=== PATIENT | female | born 1970 | race Caucasian/White ===

== ENCOUNTER 2023-02-03 09:26 | Outpatient (AMB) | payer OTHER, SELFPAY ==
--- NOTE | 2023-02-03 09:27 | A.OFFVIS_ITS ---
Intake Vital Signs 3 02/03/23 09:34 Height 5 ft 7 in Weight 146 lb 2 oz BMI 22.9 BP 120/70 Blood Pressure Location Rt brachial Position Sitting Pulse 66 Pulse Source Pulse Oximeter Pulse Oximetry (%) 99 Intake Visit Reasons: Arthralgia and Sacroiliitis Intake Note: Pain today 12/06 Qm Nurse Required: No Accompanied by: Self / Same As Patient Allergies erythromycin base Allergy (Unknown, Verified 02/03/23 09:33) Unknown HPI Arthralgia and Sacroiliitis 2 HPI0 Details Patient is a pleasant 52 years old female presents today for initial evaluation of chronic low back pain. Denies any past surgeries send trauma, injury, or falls. Patient reports chronic low back pain since 18/05 due to no specific or inciting events. Patient reports onset of pain has been gradual and over the past year has been progressively getting worse and negatively affecting her daily activities, functioning, mood, sleep, and social interactions. Back pain is axial and also radiates to both sides of the back and into both buttocks and lateral hips bilaterally which is consistent with sacroiliac joint pain. She denies any radiation to her lower extremities. Patient has completed numerous courses of physical therapy, chiropractic manipulation, muscle therapy and back injections at [facility] with minimal or no pain relief. One of her last injections were bilateral L3-L4 L5 lumbar medial branch blocks by Dr. Lambert on 10/05/2021 which provided no pain relief. Patient also try to manage her pain is meloxicam, Flexeril, diclofenac and CBD without significant relief. A course of prednisone therapy helped for 2 days only. She also underwent rheumatology evaluation with negative workup including HLA B27 which was negative. Denies any fever, chills, abdominal or groin pain, weakness, numbness, tingling, bladder or bowel dysfunction, or saddle anesthesia. Location Lower back wraps around both buttocks and into lateral hips bilaterally Duration Chronic low back pain since 2011 Characteristics of symptom or complaint Aching, tiring, spreading, radiating, piercing Aggravating or associated factors Any movements, daily activities, changing positions, prolonged sitting Relieving factors Minimal effects with NSAIDs, Flexeril, Tylenol, heat therapy Treatment PT, chiropractor, acupunture, muscle therapy. Back injections- [facility] Medical History (Updated 02/06/23 @ 16:27 by RENETTA Brown) Sacroiliitis Bilateral low back pain without sciatica DDD (degenerative disc disease), lumbar Arthralgia Social History Alcohol intake: current Alcohol intake frequency: a few times a week Alcohol type: wine Review of Systems Const All systems reviewed & are unremarkable except as noted in HPI and below Physical Exam Vital Signs: Last Vital Signs Pulse 66 02/03/23 09:34 BP 120/70 02/03/23 09:34 Pulse Ox 99 02/03/23 09:34 BMI result Body Mass Index 22.9 General: Appears afebrile. Alert and oriented. Mood and affect appropriate. Follows and participates in conversation appropriately. Respiratory effort is unlabored. No cough. Able to transition from sit to stand unassisted. Ambulates with bilaterally normal heel strike and toe off. General: Yes no CVA tenderness Back/Spine/Pelvis Other: Patient is able to walk and stand on heels and tip toes with no difficulties demonstrating good motor tone. No limping. Can flex forward to 65-75 degrees and extend to 5-10 degrees before experiencing lumbar pain, worse pain with lumbar extension. Demonstrates 5/5 strength of quadriceps bilaterally as well as flexion/dorsiflexion of bilateral feet against resistance. 2+ pedal pulses bilaterally. Seated straight leg rise with dorsiflexion negative bilaterally. +2 patellar and achilles reflexes bilaterally. Facet loading test positive bilaterally. Miguel sign, Kenji?s, [place], Pelvic compression and Stinchfield tests are positive bilaterally. No groin pain with I/E hip rotations. No clonus. Valsalva maneuver negative. Back: no CVA tenderness Cervical Spine: cervical ROM normal and No Cervical spine tenderness Thoracic/Lumbar Spine: thoracic and lumbar spine normal to inspection, No Thoracic/lumbar spine scar(s), Lasegue's sign negative, straight leg raise negative bilaterally, pain with thoraco-lumbar ROM, paraspinal muscle tenderness, No thoracic spinal tenderness and lumbar spinal tenderness at L4 Pelvis: buttock tenderness bilaterally Sacroiliac joints: bilaterally tender to palpation Results Reviewed Results Reviewed: Assessment & Plan Assessment & Plan (1) DDD (degenerative disc disease), lumbar: Code(s): M51.36 - Other intervertebral disc degeneration, lumbar region (2) Sacroiliitis: Code(s): M46.1 - Sacroiliitis, not elsewhere classified (3) Lumbosacral spondylosis: Code(s): M47.817 - Spondylosis without myelopathy or radiculopathy, lumbosacral region (4) Sacroiliac joint pain: Code(s): M53.3 - Sacrococcygeal disorders, not elsewhere classified Plan Patient's pain is consistent with sacroiliac joint, axial and discogenic pain components. Will obtain plain films of lumbar spine and SIJ areas to assess degree of degenerative changes, any subluxation, listhesis or pars defects. Lumbar spine MRI of 06/2022 is noted above and reviewed with patient. Tenantively plan for Bilateral Diagnostic Sacroiliac Joint Injection with local and fluoroscopy. We will also obtain medical records from [facility] to review previous interventional treatments. Discussed therapeutic injections, neuromodulation with PNS trial and RFA procedures, SIJ fusion as potential treatments if positive response to nerve blocks. Expectations, risks and benefits were reviewed. Patient is aware he will be contacted to schedule this procedure. All questions were answered and the patient is in agreement of plan. Follow-up after injections and sooner as needed. Orders: Orders 2 XR sacroiliac joint min 3V 02/03/23 M46.1 - Sacroiliitis, not elsewhere classified, M47.817 - Spondylosis without myelopathy or radiculopathy, lumbosacral region, M51.36 - Other intervertebral disc degeneration, lumbar region XR lumbar spine 4V min 02/03/23 M46.1 - Sacroiliitis, not elsewhere classified, M47.817 - Spondylosis without myelopathy or radiculopathy, lumbosacral region, M51.36 - Other intervertebral disc degeneration, lumbar region Coding Level of Care Code New Pt Level 4 (52718) Diagnoses DDD (degenerative disc disease), lumbar M51.36 Sacroiliitis M46.1 Lumbosacral spondylosis M47.817 Sacroiliac joint pain M53.3
[2023-02-03 09:34] VITALS: BP 120/70; PULSE 66; O2SAT 99; BMI 22.9
== END 2023-02-03 10:18 | disposition home or self-care (01) ==
PROVIDERS: PCP Family Medicine; Visit Provider Nurse Practitioner Family
DX: M51.36 Other intervertebral disc degeneration, lumbar region (principal); M46.1 Sacroiliitis, not elsewhere classified; M47.817 Spondylosis without myelopathy or radiculopathy, lumbosacral region; M53.3 Sacrococcygeal disorders, not elsewhere classified
CPT/HCPCS: 99204

== ENCOUNTER → 2023-02-03 09:26 | Outpatient (BNVA) | payer OTHER, SELFPAY | PROVIDERS: PCP Family Medicine; Visit Provider Nurse Practitioner Family ==

== ENCOUNTER 2023-03-08 06:10 | Outpatient (REF) | payer OTHER, SELFPAY ==
--- NOTE | ~2023-03-08 | FL_ITS ---
EXAMINATION: XR FLUOROSCOPY WITH IMAGES CLINICAL INFORMATION: Sacrococcygeal disorders, not elsewhere classified. COMPARISON: None available. TECHNIQUE: Fluoroscopy Supervised By: Dr. Jai Chahal. Fluoroscopy Time: 0.1 minute. Cumulative Dose: 2.69 mGy. DAP: 0.0468 Gycm2. Images: 2. FINDINGS: Images demonstrate needle placement and contrast injection of the bilateral sacroiliac joints FL/FL guidance in treatment room IMPRESSION: Fluoroscopy guidance for pain management procedure
== END 2023-03-08 06:11 | disposition home or self-care (01) ==
LOC: CF 06:10
PROVIDERS: Visit Provider Anesthesiology
DX: M53.3 Sacrococcygeal disorders, not elsewhere classified (principal); M51.36 Other intervertebral disc degeneration, lumbar region; M46.1 Sacroiliitis, not elsewhere classified; M47.817 Spondylosis without myelopathy or radiculopathy, lumbosacral region
CPT/HCPCS: 27096

== ENCOUNTER 2023-03-08 14:23 | Outpatient (AMB) | payer OTHER, SELFPAY ==
--- NOTE | 2023-03-08 14:20 | MHC.OFFVIS ---
Intake Vital Signs 03/08/23 14:35 03/08/23 14:36 Height 5 ft 7 in 5 ft 7 in Weight 146 lb 146 lb BMI 22.9 22.9 BP 124/72 112/60 Blood Pressure Location Lt brachial Lt brachial Position Sitting Sitting Respiration 16 16 Pulse 68 66 Pulse Source Pulse Oximeter Pulse Oximeter Pulse Oximetry (%) 98 98 Oxygen Delivery Method Room Air Room Air Comment pre-op post-op Intake Visit Reasons: BILAT DX SIJ INJ/*ATIVAN PRE* Allergies erythromycin base Allergy (Unknown, Verified 03/08/23 15:19) Unknown [facility] Medical History (Updated 02/06/23 @ 16:27 by RENETTA Brown) Sacroiliitis Bilateral low back pain without sciatica DDD (degenerative disc disease), lumbar Arthralgia Social History Alcohol intake: current Alcohol intake frequency: a few times a week Alcohol type: wine Physical Exam Vital Signs: Last Vital Signs Pulse 66 03/08/23 14:36 Resp 16 03/08/23 14:36 BP 112/60 03/08/23 14:36 Pulse Ox 98 03/08/23 14:36 Oxygen Delivery Method Room Air 03/08/23 14:36 BMI result Body Mass Index 22.9 Assessment & Plan Assessment & Plan (1) DDD (degenerative disc disease), lumbar: Code(s): M51.36 - Other intervertebral disc degeneration, lumbar region (2) Sacroiliitis: Code(s): M46.1 - Sacroiliitis, not elsewhere classified (3) Lumbosacral spondylosis: Code(s): M47.817 - Spondylosis without myelopathy or radiculopathy, lumbosacral region (4) Sacroiliac joint pain: Code(s): M53.3 - Sacrococcygeal disorders, not elsewhere classified Plan: bilateral diagnostic sacroiliac joint injection Informed consent was explained thoroughly to the patient. All questions about benefits and risks for the procedure were answered. Patient came to the operating room and was positioned prone on the operating table with the pillow under the pelvis. Time out was performed delineating name and of the patient, allergies and the nature of the procedure. The lower back and buttocks of the patient were prepped with ChloraPrep prepped and draped with sterile utility towels. C-arm was brought over the operating field and sq picture of patient's pelvis was demonstrated on the screen. For the right joint tilting C-arm contralateral to the site of the joint the most posterior portion of the joints was superimposed with anterior silhouette of the joint. Skin was injected in the projection of the joint slightly medial to the location of the joint with 25 gauge 1/2 inch needle using local lidocaine 2% .After that 22 gauge 3 and 1/2 inch needle was driven to the right joint in tunnel vision fashion. When needle entered the joint capsule injection of the contrast was performed demonstrating intra-articular and minimally periarticular spread of the contrast. After that 4 cc. of ropivacaine 0.5% was injected into the joint. Upon completion of the injections the needle was removed Sterile dressing was applied. The procedure was repeated on the left side in a mirroring fashion. Upon completion of the injection patient was taken outside of the operating room to the recovery room where recovered uneventfully. Plan Patient's pain is consistent with sacroiliac joint, axial and discogenic pain components. Will obtain plain films of lumbar spine and SIJ areas to assess degree of degenerative changes, any subluxation, listhesis or pars defects. Lumbar spine MRI of 06/2022 is noted above and reviewed with patient. Tenantively plan for Bilateral Diagnostic Sacroiliac Joint Injection with local and fluoroscopy. We will also obtain medical records from [facility] to review previous interventional treatments. Discussed therapeutic injections, neuromodulation with PNS trial and RFA procedures, SIJ fusion as potential treatments if positive response to nerve blocks. Expectations, risks and benefits were reviewed. Patient is aware he will be contacted to schedule this procedure. All questions were answered and the patient is in agreement of plan. Follow-up after injections and sooner as needed. Orders: Orders FL guidance in treatment room Today M53.3 - Sacrococcygeal disorders, not elsewhere classified Coding Level of Care Code Procedure Only Diagnoses DDD (degenerative disc disease), lumbar M51.36 Sacroiliitis M46.1 Lumbosacral spondylosis M47.817 Sacroiliac joint pain M53.3
[2023-03-08 14:35] VITALS: BP 124/72; PULSE 68; RESP 16; O2SAT 98; BMI 22.9
[2023-03-08 14:36] VITALS: BP 112/60; PULSE 66; RESP 16; O2SAT 98; BMI 22.9
== END 2023-03-08 15:10 | disposition home or self-care (01) ==
LOC: HO.PMCPRC 14:23
PROVIDERS: PCP Family Medicine; Visit Provider Anesthesiology
DX: M46.1 Sacroiliitis, not elsewhere classified (principal); M53.3 Sacrococcygeal disorders, not elsewhere classified
CPT/HCPCS: 27096

== ENCOUNTER 2023-03-10 13:06 | Outpatient (AMB) | payer OTHER, SELFPAY ==
--- NOTE | 2023-03-10 13:08 | MHC.OFFVIS ---
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 Chahal. Patient reports no pain relief with recent injections and reports aggravation of lower back pain, especially with flexion and extension of her lower lumbar spine. Patient reports her pain and symptoms are unchanged following the procedure. She reports she did not even gain a transient improvement of her pain symptoms following the injections. She continues to endorse pain across her lower lumbar and sacral regions with radiating pain into her buttocks but not lower limbs. Patient requests Neurosurgical evaluation prior to consideration to Bilateral L5-S1 TFESI injection. Pain consistent with discogenic and radicular symptoms. Walking, prolonged standing, climbing stairs, ADLs aggravate her pain on daily basis. She is not able to gain adequate and refreshed sleep at night due to pain. Sneezing and coughing do not reproduce pain. Denies any recent cough, cold, infection, fever or other significant changes in medical history since last office visit. Patient denies any bladder or bowel incontinence or saddle anesthesia. Past Procedures: 03/08/23: Bilateral Diagnostic Sacroiliac Joint Injections-0% pain relief [facility] Procedures: 06/22/2011: B/L L5-S1 Lumbar facet injection Dr. Moore 08/04/2011: L5-S1 Interlaminar MICHAEL Dr[address] Moore 10/05/2021: Bilateral L3-L4-L5 MBB-0% pain relief Dr. Lambert PRIOR: Patient is a pleasant 52 years old female presents today for initial evaluation of chronic low back pain. Denies any past surgeries send trauma, injury, or falls. Patient reports chronic low back pain since 18/05 due to no specific or inciting events. Patient reports onset of pain has been gradual and over the past year has been progressively getting worse and negatively affecting her daily activities, functioning, mood, sleep, and social interactions. Back pain is axial and also radiates to both sides of the back and into both buttocks and lateral hips bilaterally which is consistent with sacroiliac joint pain. She denies any radiation to her lower extremities. Patient has completed numerous courses of physical therapy, chiropractic manipulation, muscle therapy and back injections at [facility] with minimal or no pain relief. One of her last injections were bilateral L3-L4 L5 lumbar medial branch blocks by Dr. Lambert on 10/05/2021 which provided no pain relief. Patient also try to manage her pain is meloxicam, Flexeril, diclofenac and CBD without significant relief. A course of prednisone therapy helped for 2 days only. She also underwent rheumatology evaluation with negative workup including HLA B27 which was negative. Denies any fever, chills, abdominal or groin pain, weakness, numbness, tingling, bladder or bowel dysfunction, or saddle anesthesia. Location Lower back wraps around both buttocks and into lateral hips bilaterally Duration Chronic low back pain since 2011 Characteristics of symptom or complaint Aching, tiring, spreading, radiating, piercing Aggravating or associated factors Any movements, daily activities, changing positions, prolonged sitting Relieving factors Minimal effects with NSAIDs, Flexeril, Tylenol, heat therapy Treatment PT, chiropractor, acupunture, muscle therapy. Back injections- [facility] Medical History Sacroiliitis Bilateral low back pain without sciatica DDD (degenerative disc disease), lumbar Arthralgia Social History Alcohol intake: current Alcohol intake frequency: a few times a week Alcohol type: wine Review of Systems Const All systems reviewed & are unremarkable except as noted in HPI and below Physical Exam Vital Signs: Last Vital Signs Pulse 73 03/10/23 13:13 BP 122/71 03/10/23 13:13 Pulse Ox 99 03/10/23 13:13 Oxygen Delivery Method Room Air 03/10/23 13:13 BMI result Body Mass Index 23.5 General: Appears afebrile. Alert and oriented. Mood and affect appropriate. Follows and participates in conversation appropriately. Respiratory effort is unlabored. No cough. Able to transition from sit to stand unassisted. Ambulates with bilaterally normal heel strike and toe off. General: Yes no CVA tenderness Back/Spine/Pelvis Other: Limited lumbar ROM, flexion and extension equally reproduce significant pain. Demonstrates 5/5 strength of quadriceps bilaterally as well as flexion/dorsiflexion of bilateral feet against resistance. 2+ pedal pulses bilaterally. Seated straight leg rise with dorsiflexion negative bilaterally. +2 patellar and achilles reflexes bilaterally. Facet loading test positive bilaterally. Kenji?s, Pelvic compression and Stinchfield tests are positive bilaterally. No groin pain with I/E hip rotations. Valsalva maneuver negative. Back: no CVA tenderness Cervical Spine: cervical ROM normal and No Cervical spine tenderness Thoracic/Lumbar Spine: thoracic and lumbar spine normal to inspection, No Thoracic/lumbar spine scar(s), Lasegue's sign negative, straight leg raise negative bilaterally, pain with thoraco-lumbar ROM, paraspinal muscle tenderness, No thoracic spinal tenderness and lumbar spinal tenderness at L4 Pelvis: buttock tenderness bilaterally Sacroiliac joints: bilaterally tender to palpation Results Reviewed Results Reviewed: XR SACRO ILIAC JOINTS >3 views 02/07/23 INDICATION: Other intervertebral disc degeneration. Sacroiliitis, not elsewhere classified. Spondylosis without myelopathy or radiculopath, lumbosacral region. COMPARISON: XR lumbar spine 02/07/2023. FINDINGS: The visualized SI joint space is bilaterally symmetrical. There is no evidence of lytic or sclerotic process. Bones demonstrate normal mineralization. IUD IMPRESSION: Unremarkable radiographic appearance of the sacroiliac joints. XR SPINE LUMBAR MIN 4 VIEWS 02/07/23 INDICATION: Other intervertebral disc degeneration. Sacroiliitis, not elsewhere classified. Spondylosis of the lumbosacral region. COMPARISON: None Available. FINDINGS: The alignment is anatomic. Vertebral body height is normal without compression deformity. There is no evidence of spondylolysis. Degenerative disc disease with moderate to advanced disc space narrowing at L5-S1. Flexion and extension are normal. IUD noted. IMPRESSION: No radiographic evidence of acute fracture or traumatic subluxation. Degenerative disc disease with moderate to advanced disc space narrowing at L5-S1. Assessment & Plan Assessment & Plan (1) Lumbosacral spondylosis: Code(s): M47.817 - Spondylosis without myelopathy or radiculopathy, lumbosacral region (2) DDD (degenerative disc disease), lumbar: Code(s): M51.36 - Other intervertebral disc degeneration, lumbar region (3) Sacroiliac joint pain: Code(s): M53.3 - Sacrococcygeal disorders, not elsewhere classified Plan Patient has had multiple back injections at [facility] without relief. Recent bilateral diagnostic sacroiliac joint injections gave her 0% pain relief. Patient request Neurosurgery referral prior to proceeding treating lumbar DDD at L5-S1 level. Will update lumbar spine MRI per [facility]. Scripts provided for muscle relaxant, short script tramadol and NSAID for acute on chronic back symptoms. All questions and concerns have been answered and patient agreed with the plan. Follow up after Neurosurgery evaluation and sooner if needed. Orders: Orders MR lumbar spine wo con Today M47.817 - Spondylosis without myelopathy or radiculopathy, lumbosacral region, M51.36 - Other intervertebral disc degeneration, lumbar region Referrals Neurosurgery Referral M51.36 - Other intervertebral disc degeneration, lumbar region Medications: New celecoxib 200 mg PO BID PRN 60 caps 0RF pain M47.817 - Spondylosis without myelopathy or radiculopathy, lumbosacral region, M51.36 - Other intervertebral disc degeneration, lumbar region, M53.3 - Sacrococcygeal disorders, not elsewhere classified methocarbamol 750 mg PO BID PRN 60 tabs 1RF muscle spasm 30 days M47.817 - Spondylosis without myelopathy or radiculopathy, lumbosacral region, M51.36 - Other intervertebral disc degeneration, lumbar region, M53.3 - Sacrococcygeal disorders, not elsewhere classified tramadol 50 mg PO BID PRN 10 tabs 0RF pain 5 days M47.817 - Spondylosis without myelopathy or radiculopathy, lumbosacral region, M51.36 - Other intervertebral disc degeneration, lumbar region Coding Level of Care Code Est Pt Level 4 (04958) Diagnoses Lumbosacral spondylosis M47.817 DDD (degenerative disc disease), lumbar M51.36 Sacroiliac joint pain M53.3
[2023-03-10 13:13] VITALS: BP 122/71; PULSE 73; O2SAT 99; BMI 23.5
== END 2023-03-10 13:45 | disposition home or self-care (01) ==
PROVIDERS: PCP Family Medicine; Visit Provider Nurse Practitioner Family
DX: M47.817 Spondylosis without myelopathy or radiculopathy, lumbosacral region (principal); M51.36 Other intervertebral disc degeneration, lumbar region; M53.3 Sacrococcygeal disorders, not elsewhere classified
CPT/HCPCS: 99214

== ENCOUNTER → 2023-03-10 13:06 | Outpatient (BNVA) | payer OTHER, SELFPAY | PROVIDERS: PCP Family Medicine; Visit Provider Nurse Practitioner Family ==

== ENCOUNTER 2023-04-27 09:27 | Outpatient (AMB) | payer OTHER, SELFPAY ==
--- NOTE | 2023-04-27 09:46 | HO.SPINEOV ---
Intake Intake Visit Reasons: Low back pain Intake Note: Ms. Rick is here today c/o low back pain. MRI done @ [facility]/brought disc. 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 HPI: This 52-year-old otherwise healthy female is suffering from progressive severe low back pain that started several years ago without a cause. The pain is located in the lumbosacral spine and radiates from hip to hip down to her buttocks and tailbone. Since three months she noticed that her outer 3 toes are numb. The pain is constant 24/7. Her sleep is interrupted and simple cycle analyst are painful. Tramadol takes the edge off. She denies weakness, bowel or urinary problems The following conservative treatment options were tried without success antiinflammatories, tylenol, physician guided home exercise plan, physical therapy, chiropractic therapy, muscle therapy and several cortisone shots. PMH: None Medications: Currently none as the [id number]-lvp-rcoofut medication provided no relief Allergies: Erythromycin Social history: , 2 children, employed, nonsmoker Physical Exam: Pleasant female. Changing position is painful.Camargo sign is positive on the left. There is mild pain on palpation. Flexion and extension are restricted to 20 degrees and very painful. Axial loading is positive. Straight leg raise is negative. There is hypoesthesia of digiti 1-3 on the left foot. Radiological Studies: MRI of the lumbar spine done at [facility] in June 2022 show a an normal anatomy of the lumbar spine with the exception of the L5-S1 segment where there is severe lumbar degenerative disc disease with Modic changes and an eccentric disc bulge touching the left S1 nerve root. Impression/Plan: This 52-year-old female suffering from intractable progressive low back pain. The severe degenerative disc disease L5-S1 his most likely the source of her pain and the eccentric disc bulge explains the left sciatica and numbness of the outer 3 toes (S1 radiculopathy). We had an extensive discussion about the origin of her back pain and possible solution. I do not think there are any more conservative treatments that will benefit this patient. In fact, she only has gotten worse despite all these treatments. I think she is a good candidate for an L5-S1 lumbar fusion, particularly an anterior lumbar interbody fusion. I went over all the several approaches to the spine and explained to her why I thought the ALIF would be the best approach. We also have to consider obtaining a new MRI of the lumbar spine as her symptoms have changed in the last few months where she developed an S1 radiculopathy. She will contact my office if she wants to repeat an MRI and proceed with surgery. Thank you for allowing me to participate in your patients care. total time spent was 50 minutes in counseling ,coordination of plan, personal review of imaging, surgical decision making and subsequent plan Angelo Pettit MD, PhD Spine Fellowship Trained Neurosurgeon Director, [facility] Coding Level of Care Code New Pt Level 4 (00944) Diagnoses DDD (degenerative disc disease), lumbar M51.36 Left lumbar radiculopathy M54.16
== END 2023-04-27 10:36 | disposition home or self-care (01) ==
PROVIDERS: PCP Family Medicine; Referring Provider Nurse Practitioner Family; Visit Provider Neurological Surgery
DX: M51.36 Other intervertebral disc degeneration, lumbar region (principal); M54.16 Radiculopathy, lumbar region
CPT/HCPCS: 99204

== ENCOUNTER → 2023-04-27 09:27 | Outpatient (BNVA) | payer OTHER, SELFPAY | PROVIDERS: PCP Family Medicine; Referring Provider Nurse Practitioner Family; Visit Provider Neurological Surgery ==

== ENCOUNTER 2023-06-02 14:43 | Outpatient (AMB) | payer OTHER, SELFPAY ==
--- NOTE | 2023-06-02 14:46 | MHC.OFFVIS ---
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 She was evaluated by Dr. Pettit on 04/27/23 and was offered L5-S1 lumbar fusion, particularly an anterior lumbar interbody fusion after repeating lumbar spine MRI. Patient reports she has not had another MRI yet as this has not been ordered. I will order this at [facility] per patient's request due to her insurance network coverage requirements. Patient is hesitant towards invasive back surgery and is open to a second opinion to confirm candidacy for lumbar fusion. Patient reports her back pain is function and mobility limiting as well as affecting her sleep and quality of life and has been resistant to conservative treatments. She reports mild relief with short script of tramadol last year and notes it allowed her to be slightly more functional and less symptomatic. Patient continues to stay active as tolerated, applies heat therapy, Tylenol and NSAIDs with continued symptoms. Patient denies any fever, abdominal or groin pain, foot drop, bladder or bowel incontinence or saddle anesthesia. She reports left lower extremity weakness. Denies any recent trauma, falls, or injury. Past Procedures: 03/08/23: Bilateral Diagnostic Sacroiliac Joint Injections-0% pain relief PSSP Procedures: 06/22/2011: B/L L5-S1 Lumbar facet injection Dr. Moore 08/04/2011: L5-S1 Interlaminar [address] Moore 10/05/2021: Bilateral L3-L4-L5 MBB-0% pain relief Dr. Lambert PRIOR: Patient is a pleasant 52 years old female presents today for initial evaluation of chronic low back pain. Denies any past surgeries send trauma, injury, or falls. Patient reports chronic low back pain since 18/05 due to no specific or inciting events. Patient reports onset of pain has been gradual and over the past year has been progressively getting worse and negatively affecting her daily activities, functioning, mood, sleep, and social interactions. Back pain is axial and also radiates to both sides of the back and into both buttocks and lateral hips bilaterally which is consistent with sacroiliac joint pain. She denies any radiation to her lower extremities. Patient has completed numerous courses of physical therapy, chiropractic manipulation, muscle therapy and back injections at [facility] with minimal or no pain relief. One of her last injections were bilateral L3-L4 L5 lumbar medial branch blocks by Dr. Lambert on 10/05/2021 which provided no pain relief. Patient also try to manage her pain is meloxicam, Flexeril, diclofenac and CBD without significant relief. A course of prednisone therapy helped for 2 days only. She also underwent rheumatology evaluation with negative workup including HLA B27 which was negative. Denies any fever, chills, abdominal or groin pain, weakness, numbness, tingling, bladder or bowel dysfunction, or saddle anesthesia. Location Lower back wraps around both buttocks and into lateral hips bilaterally Duration Chronic low back pain since 2011 Characteristics of symptom or complaint Aching, tiring, spreading, radiating, piercing Aggravating or associated factors Any movements, daily activities, changing positions, prolonged sitting Relieving factors Minimal effects with NSAIDs, Flexeril, Tylenol, heat therapy Treatment PT, chiropractor, acupunture, muscle therapy. Back injections- [facility] Medical History Sacroiliitis Bilateral low back pain without sciatica DDD (degenerative disc disease), lumbar Arthralgia Social History Alcohol intake: current Alcohol intake frequency: a few times a week Alcohol type: wine Review of Systems Const All systems reviewed & are unremarkable except as noted in HPI and below Physical Exam Vital Signs: Last Vital Signs Pulse 76 06/02/23 14:50 BP 135/63 06/02/23 14:50 Pulse Ox 99 06/02/23 14:50 Oxygen Delivery Method Room Air 06/02/23 14:50 General: Appears afebrile. Alert and oriented. Mood and affect appropriate. Follows and participates in conversation appropriately. Respiratory effort is unlabored. No cough. Able to transition from sit to stand unassisted. Ambulates with bilaterally normal heel strike and toe off. General: Yes no CVA tenderness Back/Spine/Pelvis Other: Limited lumbar ROM, flexion and extension equally reproduce significant pain. Demonstrates 5/5 strength of quadriceps bilaterally as well as flexion/dorsiflexion of bilateral feet against resistance. 2+ pedal pulses bilaterally. Seated straight leg rise with dorsiflexion positive on the left in L5-S1 distribution. +2 patellar and achilles reflexes bilaterally. Painful facet loading test positive bilaterally. Kenji?s, Pelvic compression and Stinchfield tests are positive bilaterally. No groin pain with I/E hip rotations. Valsalva maneuver negative. Back: no CVA tenderness Cervical Spine: cervical ROM normal and No Cervical spine tenderness Thoracic/Lumbar Spine: thoracic and lumbar spine normal to inspection, No Thoracic/lumbar spine scar(s), Lasegue's sign positive on the left and diffuse, pain with thoraco-lumbar ROM, paraspinal muscle tenderness, No thoracic spinal tenderness and lumbar spinal tenderness (L4-S1) Pelvis: buttock tenderness on the left and sciatic notch tenderness on the left Sacroiliac joints: bilaterally tender to palpation Results Reviewed Results Reviewed: XR SACRO ILIAC JOINTS >3 views 02/07/23 INDICATION: Other intervertebral disc degeneration. Sacroiliitis, not elsewhere classified. Spondylosis without myelopathy or radiculopath, lumbosacral region. COMPARISON: XR lumbar spine 02/07/2023. FINDINGS: The visualized SI joint space is bilaterally symmetrical. There is no evidence of lytic or sclerotic process. Bones demonstrate normal mineralization. IUD IMPRESSION: Unremarkable radiographic appearance of the sacroiliac joints. XR SPINE LUMBAR MIN 4 VIEWS 02/07/23 INDICATION: Other intervertebral disc degeneration. Sacroiliitis, not elsewhere classified. Spondylosis of the lumbosacral region. COMPARISON: None Available. FINDINGS: The alignment is anatomic. Vertebral body height is normal without compression deformity. There is no evidence of spondylolysis. Degenerative disc disease with moderate to advanced disc space narrowing at L5-S1. Flexion and extension are normal. IUD noted. IMPRESSION: No radiographic evidence of acute fracture or traumatic subluxation. Degenerative disc disease with moderate to advanced disc space narrowing at L5-S1. Assessment & Plan Assessment & Plan (1) Left lumbar radiculopathy: Code(s): M54.16 - Radiculopathy, lumbar region (2) DDD (degenerative disc disease), lumbar: Code(s): M51.36 - Other intervertebral disc degeneration, lumbar region (3) Lumbosacral spondylosis: Code(s): M47.817 - Spondylosis without myelopathy or radiculopathy, lumbosacral region (4) Sacroiliac joint pain: Code(s): M53.3 - Sacrococcygeal disorders, not elsewhere classified Plan MRI of the lumbar spine to assess for neural integrity and compression and follow up on previous MRI findings. Patient has tried NSAIDs, opioids, heat therapy, PT, chiropractic and massage therapy, muscle therapy, interventional treatments with continued symptoms. Patient will return to the clinic to discuss results of the MRI findings when it is done and consider interventional therapy as indicated. Short script provided for oxycodone for moderate to severe low back pain with left radicular symptoms. Continue heat therapy, gentle stretching, NSAIDs, muscle relaxants, good posture, activity modifications and avoiding heavy lifting. Patient is aware to call if pain worsens or if she develops any red flag symptoms to seek emergency care. Patient denies any cauda equina syndrome symptoms at this time. All questions and concerns have been answered and patient agreed with the plan. Follow up after Neurosurgery evaluation and sooner if needed. Medications: New oxycodone Partial Fill upon patient request. 5 mg PO Q8H 15 days PRN 30 tabs 0RF pain M47.817 - Spondylosis without myelopathy or radiculopathy, lumbosacral region, M51.36 - Other intervertebral disc degeneration, lumbar region, M54.16 - Radiculopathy, lumbar region Discontinued tramadol Discontinued Reason: Patient Completed Course 50 mg PO BID 5 days PRN 10 tabs 0RF pain M47.817 - Spondylosis without myelopathy or radiculopathy, lumbosacral region, M51.36 - Other intervertebral disc degeneration, lumbar region Coding Level of Care Code Est Pt Level 4 (25807) Diagnoses Left lumbar radiculopathy M54.16 DDD (degenerative disc disease), lumbar M51.36 Lumbosacral spondylosis M47.817 Sacroiliac joint pain M53.3
[2023-06-02 14:50] VITALS: BP 135/63; PULSE 76; O2SAT 99
== END 2023-06-02 15:22 | disposition home or self-care (01) ==
PROVIDERS: PCP Family Medicine; Visit Provider Nurse Practitioner Family
DX: M54.16 Radiculopathy, lumbar region (principal); M51.36 Other intervertebral disc degeneration, lumbar region; M47.817 Spondylosis without myelopathy or radiculopathy, lumbosacral region; M53.3 Sacrococcygeal disorders, not elsewhere classified
CPT/HCPCS: 99214

== ENCOUNTER → 2023-06-02 14:43 | Outpatient (BNVA) | payer OTHER, SELFPAY | PROVIDERS: PCP Family Medicine; Visit Provider Nurse Practitioner Family ==

== ENCOUNTER 2023-06-24 09:30 | Outpatient (AMB) | payer OTHER, SELFPAY ==
--- NOTE | 2023-06-24 09:33 | A.OFFVIS_ITS ---
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 Denies any recent cough, cold, infection, fever, any significant changes in her medical history, medications or recent hospitalizations. PRIOR: Patient presents today for follow up for progressively worsening low back pain with left sided radiculopathy in L5-S1 distribution. She was evaluated by Dr. Pettit on 04/27/23 and was offered L5-S1 lumbar fusion, particularly an anterior lumbar interbody fusion after repeating lumbar spine MRI. Patient reports she has not had another MRI yet as this has not been ordered. I will order this at [facility] per patient's request due to her insurance network coverage requirements. Patient is hesitant towards invasive back surgery and is open to a second opinion to confirm candidacy for lumbar fusion. Patient reports her back pain is function and mobility limiting as well as affecting her sleep and quality of life and has been resistant to conservative treatments. She reports mild relief with short script of tramadol last year and notes it allowed her to be slightly more functional and less symptomatic. Patient continues to stay active as tolerated, applies heat therapy, Tylenol and NSAIDs with continued symptoms. Patient denies any fever, abdominal or groin pain, foot drop, bladder or bowel incontinence or saddle anesthesia. She reports left lower extremity weakness. Denies any recent trauma, falls, or injury. Past Procedures: 03/08/23: Bilateral Diagnostic Sacroilia c Joint Injections-0% pain relief PSSP Procedures: 06/22/2011: B/L L5-S1 Lumbar facet injec tion Dr. Moore 08/04/2011: L5-S1 Interlaminar [address] Devon myers 10/05/2021: Bilateral L3-L4-L5 MBB-0% pa in relief Dr. Lambert PRIOR: Patient is a pleasant 52 years old female presents today for initial evaluation of chronic low back pain. Denies any past surgeries send trauma, injury, or falls. Patient reports chronic low back pain since 18/05 due to no specific or inciting events. Patient reports onset of pain has been gradual and over the past year has been progressively getting worse and negatively affecting her daily activities, functioning, mood, sleep, and social interactions. Back pain is axial and also radiates to both sides of the back and into both buttocks and lateral hips bilaterally which is consistent with sacroiliac joint pain. She denies any radiation to her lower extremities. Patient has completed numerous courses of physical therapy, chiropractic manipulation, muscle therapy and back injections at [facility] with minimal or no pain relief. One of her last injections were bilateral L3-L4 L5 lumbar medial branch blocks by Dr. Lambert on 10/05/2021 which provided no pain relief. Patient also try to manage her pain is meloxicam, Flexeril, diclofenac and CBD without significant relief. A course of prednisone therapy helped for 2 days only. She also underwent rheumatology evaluation with negative workup including HLA B27 which was negative. Denies any fever, chills, abdominal or groin pain, weakness, numbness, tingling, bladder or bowel dysfunction, or saddle anesthesia. Location Lower back wraps around both buttocks and into lateral hips bilaterally Duration Chronic low back pain since 2011 Characteristics of symptom or complaint Aching, tiring, spreading, radiating, piercing Aggravating or associated factors Any movements, daily activities, changing positions, prolonged sitting Relieving factors Minimal effects with NSAIDs, Flexeril, Tylenol, heat therapy Treatment PT, chiropractor, acupunture, muscle therapy. Back injections- [facility] Medical History Sacroiliitis Bilateral low back pain without sciatica DDD (degenerative disc disease), lumbar Arthralgia Social History Alcohol intake: current Alcohol intake frequency: a few times a week Alcohol type: wine Review of Systems Const All systems reviewed & are unremarkable except as noted in HPI and below Physical Exam Vital Signs: Last Vital Signs Pulse 64 06/24/23 09:36 BP 127/73 06/24/23 09:36 Pulse Ox 98 06/24/23 09:36 Oxygen Delivery Method Room Air 01/26/24 09:36 BMI result Body Mass Index 22.7 General: Appears afebrile. Alert and oriented. Mood and affect appropriate. Follows and participates in conversation appropriately. Respiratory effort is unlabored. No cough. Able to transition from sit to stand unassisted. Ambulates with bilaterally normal heel strike and toe off. General: Yes no CVA tenderness Back/Spine/Pelvis Other: Limited lumbar ROM, flexion and extension equally reproduce significant pain. Demonstrates 5/5 strength of quadriceps bilaterally as well as flexion/dorsiflexion of bilateral feet against resistance. 2+ pedal pulses bilaterally. Seated straight leg rise with dorsiflexion positive on the left in L5-S1 distribution. +2 patellar and achilles reflexes bilaterally. Painful facet loading test positive bilaterally. Kenji?s, Pelvic compression and Stinchfield tests are positive bilaterally. No groin pain with I/E hip rotations. Valsalva maneuver negative. Back: no CVA tenderness Cervical Spine: cervical ROM normal, cervical muscular tenderness and No Cervical spine tenderness Thoracic/Lumbar Spine: thoracic and lumbar spine normal to inspection, No Thoracic/lumbar spine scar(s), Lasegue's sign positive on the left and diffuse, pain with thoraco-lumbar ROM, paraspinal muscle tenderness, No thoracic spinal tenderness and lumbar spinal tenderness (L4-S1) Pelvis: buttock tenderness on the left and sciatic notch tenderness on the left Sacroiliac joints: bilaterally tender to palpation Results Reviewed Results Reviewed: Assessment & Plan Assessment & Plan (1) Left lumbar radiculopathy: Code(s): M54.16 - Radiculopathy, lumbar region (2) Lumbosacral spondylosis: Code(s): M47.817 - Spondylosis without myelopathy or radiculopathy, lumbosacral region (3) DDD (degenerative disc disease), lumbar: Code(s): M51.36 - Other intervertebral disc degeneration, lumbar region (4) Vertebrogenic low back pain: Code(s): M54.51 - Vertebrogenic low back pain Plan Lumbar spine MRI results reviewed with patient in greater detail. Patient continues to endorse low back pain with left sided radiculopathy in L5-S1 distribution and exacerbation with lumbar flexion indicating a discogenic source. For her axial low back pain and degenerative changes on the endplates with Modic type I changes, patient is a good candidate for Intracept procedure. I discussed the BVN ablation with her for L5-S1 levels, based on MRI findings. Informational pamphlets provided. Patient was evaluated by Dr. Pettit on 04/27/23 and was offered L5-S1 lumbar fusion, which patient would like to avoid at this time and pursue interventional treatments. Her back pain is function and mobility limiting and has been resistant to conservative treatments. Patient is interested to undergo therapeutic MICHAEL prior to BVN ablation procedure. Schedule L5-S1 Interlaminar Midline MICHAEL with local and fluoroscopy. Expectations, risks and benefits were reviewed. Patient is aware she will be contacted to schedule this procedure. All questions were answered and the patient is in agreement of plan. Follow-up after injections and sooner as needed. Medications: Discontinued 2 oxycodone Partial Fill upon patient request. Discontinued Reason: Patient Completed Course 5 mg PO Q8H 15 days PRN 30 tabs 0RF pain M47.817 - Spondylosis without myelopathy or radiculopathy, lumbosacral region, M51.36 - Other intervertebral disc degeneration, lumbar region, M54.16 - Radiculopathy, lumbar region Coding Level of Care Code Est Pt Level 4 (09666) Diagnoses Left lumbar radiculopathy M54.16 Lumbosacral spondylosis M47.817 DDD (degenerative disc disease), lumbar M51.36 Vertebrogenic low back pain M54.51
[2023-06-24 09:36] VITALS: BP 127/73; PULSE 64; O2SAT 98; BMI 22.7
== END 2023-06-24 10:08 | disposition home or self-care (01) ==
PROVIDERS: PCP Family Medicine; Visit Provider Nurse Practitioner Family
DX: M54.16 Radiculopathy, lumbar region (principal); M47.817 Spondylosis without myelopathy or radiculopathy, lumbosacral region; M51.36 Other intervertebral disc degeneration, lumbar region; M54.51 Vertebrogenic low back pain
CPT/HCPCS: 99214

== ENCOUNTER → 2023-06-24 09:30 | Outpatient (BNVA) | payer OTHER, SELFPAY | PROVIDERS: PCP Family Medicine; Visit Provider Nurse Practitioner Family ==

== ENCOUNTER 2023-08-09 06:14 | Outpatient (REF) | payer OTHER, SELFPAY ==
--- NOTE | ~2023-08-09 | FL_ITS ---
EXAMINATION: XR FLUOROSCOPY WITH IMAGES CLINICAL INFORMATION: Vertebrogenic low back pain COMPARISON: None available. TECHNIQUE: Fluoroscopy Supervised By: Sylvia. Fluoroscopy Time: 0.2. Cumulative Dose: 3.07 mGy. DAP: 0.0399 Gycm2. Images: 2. FINDINGS: Limited images of the lumbosacral spine revealing needle positioned posteriorly at the L5/S1 disc level with contrast opacifying the posterior epidural space for pain management. There is loss of L5-S1 disc height with moderate posterior endplate spurring. FL/FL guidance in treatment room IMPRESSION: 1. Fluoroscopy guidance was provided to referrer for pain management. 2. Degenerative disc changes with posterior endplate spurring L5-S1 disc level.
== END 2023-08-09 06:15 | disposition home or self-care (01) ==
LOC: CF 06:14
PROVIDERS: Visit Provider Anesthesiology
DX: M54.16 Radiculopathy, lumbar region (principal); M54.51 Vertebrogenic low back pain; M47.817 Spondylosis without myelopathy or radiculopathy, lumbosacral region; M51.36 Other intervertebral disc degeneration, lumbar region
CPT/HCPCS: 62321; J1100; Q9967

== ENCOUNTER 2023-08-09 08:25 | Outpatient (AMB) | payer OTHER, SELFPAY ==
[2023-08-09 09:01] VITALS: BP 130/80; PULSE 79; RESP 16; O2SAT 97; BMI 22.7
--- NOTE | 2023-08-09 09:01 | MHC.OFFVIS ---
Intake Vital Signs 08/09/23 09:01 08/09/23 09:28 Height 5 ft 7 in Weight 145 lb BMI 22.7 BP 130/80 128/84 Blood Pressure Location Lt brachial Lt brachial Position Sitting Sitting Respiration 16 18 Pulse 79 82 Pulse Source Pulse Oximeter Pulse Oximeter Pulse Oximetry (%) 97 98 Oxygen Delivery Method Room Air Room Air Comment Pre-Op Post-Op Intake Visit Reasons: L5, S1 INTERLAMINAR MIDLINE MICHAEL Allergies erythromycin base Allergy (Unknown, Verified 06/24/23 09:37) Unknown [facility] Medical History Sacroiliitis Bilateral low back pain without sciatica DDD (degenerative disc disease), lumbar Arthralgia Social History Alcohol intake: current Alcohol intake frequency: a few times a week Alcohol type: wine Physical Exam Vital Signs: Last Vital Signs Pulse 82 08/09/23 09:28 Resp 18 08/09/23 09:28 BP 128/84 08/09/23 09:28 Pulse Ox 98 08/09/23 09:28 Oxygen Delivery Method Room Air 08/09/23 09:28 BMI result Body Mass Index 22.7 Assessment & Plan Assessment & Plan (1) Left lumbar radiculopathy: Code(s): M54.16 - Radiculopathy, lumbar region (2) Lumbosacral spondylosis: Code(s): M47.817 - Spondylosis without myelopathy or radiculopathy, lumbosacral region (3) DDD (degenerative disc disease), lumbar: Code(s): M51.36 - Other intervertebral disc degeneration, lumbar region (4) Vertebrogenic low back pain: Code(s): M54.51 - Vertebrogenic low back pain Plan: INTERLAMINAR EPIDURAL STEROID INJECTION L5-S1. Informed consent was explained thoroughly to the patient. All questions about benefits and risks for the procedure were answered. Patient came to the operating room and was positioned prone on the operating table with the pillow under the ABDOMEN. Time out was performed delineating name and of the patient, allergies and the nature of the procedure. The lower back and buttocks of the patient were prepped with ChloraPrep prepped and draped with sterile utility towels. C-arm was brought over the operating field and sq picture of patient's L5 AND S1 vertebra were demonstrated on the screen. The point of interest was delineated as the left upper lamina of the S1 vertebra close to the spinous process of S1 vertebra. The projection of the point of interest to the skin was injected with small amount of lidocaine 1%. After that 20 gauge Touhy epidural needle was inserted through the skin and advanced to were the epidural space L5-S1 under anterior posterior and mostly lateral views loss of resistance to air technique was used to identify epidural space. When loss of resistance felt and needle was positioned in the posterior interlaminar line projection on the lateral view injection of the contrast was performed demonstrating epidurogram. After that 4 cc of lidocaine 1% mixed with Decadron 10 mg was injected into the needle. The needle was removed sterile Band-Aid was applied. The patient tolerated procedure well. She was taken outside of the operating room to recovery room where she recovered uneventfully.. Plan Lumbar spine MRI results reviewed with patient in greater detail. Patient continues to endorse low back pain with left sided radiculopathy in L5-S1 distribution and exacerbation with lumbar flexion indicating a discogenic source. For her axial low back pain and degenerative changes on the endplates with Modic type I changes, patient is a good candidate for Intracept procedure. I discussed the BVN ablation with her for L5-S1 levels, based on MRI findings. Informational pamphlets provided. Patient was evaluated by Dr. Pettit on 04/27/23 and was offered L5-S1 lumbar fusion, which patient would like to avoid at this time and pursue interventional treatments. Her back pain is function and mobility limiting and has been resistant to conservative treatments. Patient is interested to undergo therapeutic MICHAEL prior to BVN ablation procedure. Schedule L5-S1 Interlaminar Midline MICHAEL with local and fluoroscopy. Expectations, risks and benefits were reviewed. Patient is aware she will be contacted to schedule this procedure. All questions were answered and the patient is in agreement of plan. Follow-up after injections and sooner as needed. Orders: Orders FL guidance in treatment room Today M54.16 - Radiculopathy, lumbar region, M54.51 - Vertebrogenic low back pain Coding Level of Care Code Procedure Only Diagnoses Left lumbar radiculopathy M54.16 Lumbosacral spondylosis M47.817 DDD (degenerative disc disease), lumbar M51.36 Vertebrogenic low back pain M54.51
[2023-08-09 09:28] VITALS: BP 128/84; PULSE 82; RESP 18; O2SAT 98
== END 2023-08-09 09:30 | disposition home or self-care (01) ==
LOC: HO.PMCPRC 08:25
PROVIDERS: PCP Family Medicine; Visit Provider Anesthesiology
DX: M54.16 Radiculopathy, lumbar region (principal)
CPT/HCPCS: 62321

== ENCOUNTER 2023-09-06 09:24 | Outpatient (AMB) | payer OTHER, SELFPAY ==
--- NOTE | 2023-09-06 09:30 | A.OFFVIS_ITS ---
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 Chahal. Patient reports 0% pain relief since procedure and no improvement in her daily functioning, mobility or sleep. She continues to experience significant low back pain with bending, lifting, forward flexion, prolonged sitting, standing or walking. Patient has tried NSAIDs, methocarbamol, Tylenol, heat/ice therapy, short term opioids, physical, chiropractic and massage therapies, home exercise program and acupuncture. Patient also underwent recently and in the past diagnostic and therapeutic injections with minimal to no pain relief as noted below. Patient reports she is recovering from cold symptoms otherwise denies any recent cough, infection, fever, abdominal or groin pain, bladder or bowel dysfunction, saddle anesthesia, any significant changes in her medical history, medications or recent hospitalizations. Past Procedures: 08/09/23: L5-S1 Interlaminar MICHAEL-0% pain relief 03/08/23: Bilateral Diagnostic Sacroilia c Joint Injections-0% pain relief [facility] Procedures: 06/22/2011: B/L L5-S1 Lumbar facet injec tion Dr. Moore 08/04/2011: L5-S1 Interlaminar MICHA[address] Devon myers 10/05/2021: Bilateral L3-L4-L5 MBB-0% pa in relief Dr. Lambert PRIOR: Patient is a pleasant 52 years old female presents today for initial evaluation of chronic low back pain. Denies any past surgeries send trauma, injury, or falls. Patient reports chronic low back pain since 18/05 due to no specific or inciting events. Patient reports onset of pain has been gradual and over the past year has been progressively getting worse and negatively affecting her daily activities, functioning, mood, sleep, and social interactions. Back pain is axial and also radiates to both sides of the back and into both buttocks and lateral hips bilaterally which is consistent with sacroiliac joint pain. She denies any radiation to her lower extremities. Patient has completed numerous courses of physical therapy, chiropractic manipulation, muscle therapy and back injections at [facility] with minimal or no pain relief. One of her last injections were bilateral L3-L4 L5 lumbar medial branch blocks by Dr. Lambert on 10/05/2021 which provided no pain relief. Patient also try to manage her pain is meloxicam, Flexeril, diclofenac and CBD without significant relief. A course of prednisone therapy helped for 2 days only. She also underwent rheumatology evaluation with negative workup including HLA B27 which was negative. Denies any fever, chills, abdominal or groin pain, weakness, numbness, tingling, bladder or bowel dysfunction, or saddle anesthesia. Location Lower back wraps around both buttocks and into lateral hips bilaterally Duration Chronic low back pain since 2011 Characteristics of symptom or complaint Aching, tiring, spreading, radiating, piercing Aggravating or associated factors Any movements, daily activities, changing positions, prolonged sitting Relieving factors Minimal effects with NSAIDs, Flexeril, Tylenol, heat therapy Treatment PT, chiropractor, acupunture, muscle therapy. Back injections- [facility] Medical History Sacroiliitis Bilateral low back pain without sciatica DDD (degenerative disc disease), lumbar Arthralgia Social History Alcohol intake: current Alcohol intake frequency: a few times a week Alcohol type: wine Review of Systems Const All systems reviewed & are unremarkable except as noted in HPI and below Reports as per HPI, Denies body aches, Denies chills, Reports difficulty sleeping, Denies fatigue, Denies fever(s), Denies malaise and Denies weight loss Endo Denies fatigue Physical Exam Vital Signs: Last Vital Signs Pulse 82 09/06/23 09:35 BP 127/72 09/06/23 09:35 Pulse Ox 99 09/06/23 09:35 Oxygen Delivery Method Room Air 09/06/23 09:35 BMI result Body Mass Index 22.9 General: Appears afebrile. Alert and oriented. Mood and affect appropriate. Follows and participates in conversation appropriately. Respiratory effort is unlabored. No cough. Able to transition from sit to stand unassisted. Ambulates with bilaterally normal heel strike and toe off. Back/Spine/Pelvis Other: Limited lumbar ROM, flexion and extension equally reproduce significant pain. Demonstrates 5/5 strength of quadriceps bilaterally as well as flexion/dorsiflexion of bilateral feet against resistance. 2+ pedal pulses bilaterally. +2 patellar and achilles reflexes bilaterally. Painful facet loading test positive bilaterally. Kenji?s, Pelvic compression and Stinchfield tests are positive bilaterally. No groin pain with I/E hip rotations. Valsalva maneuver negative. Cervical Spine: cervical ROM normal, No Cervical spine tenderness and No step off deformity Thoracic/Lumbar Spine: thoracic and lumbar spine normal to inspection, No Thoracic/lumbar spine scar(s), Lasegue's sign negative, straight leg raise negative bilaterally, pain with thoraco-lumbar ROM, paraspinal muscle tenderness, thoraco-lumbar ROM limited, No thoracic spinal tenderness and lumbar spinal tenderness (L4-S1) Pelvis: buttock tenderness on the left Sacroiliac joints: bilaterally tender to palpation Results Reviewed Results Reviewed: FL guidance in treatment room 08/09/23 IMPRESSION: 1. Fluoroscopy guidance was provided to referrer for pain management. 2. Degenerative disc changes with posterior endplate spurring L5-S1 disc level. Assessment & Plan Assessment & Plan (1) Lumbosacral spondylosis: Code(s): M47.817 - Spondylosis without myelopathy or radiculopathy, lumbosacral region (2) DDD (degenerative disc disease), lumbar: Code(s): M51.36 - Other intervertebral disc degeneration, lumbar region (3) Vertebrogenic low back pain: Code(s): M54.51 - Vertebrogenic low back pain (4) Sacroiliac joint pain: Code(s): M53.3 - Sacrococcygeal disorders, not elsewhere classified (5) Low back pain: Code(s): M54.50 - Low back pain, unspecified Plan Patient is status post L5-S1 Interlaminar MICHAEL with no pain relief. We will proceed with BVN ablation at L5-S1 levels with sedation and fluoroscopy, based on MRI findings and patient's exam. Expectations, risks and benefits were reviewed. Patient is aware she will be contacted to schedule this procedure. Patient was evaluated by Dr. Pettit on 04/27/23 and was offered L5-S1 lumbar fusion, which patient would like to avoid at this time and pursue interventional treatments. Her back pain is function and mobility limiting and has been resistant to conservative treatments. All questions were answered and the patient is in agreement of plan. Follow-up after injections and sooner as needed. Coding Level of Care Code Est Pt Level 4 (75367) Diagnoses Lumbosacral spondylosis M47.817 DDD (degenerative disc disease), lumbar M51.36 Vertebrogenic low back pain M54.51 Sacroiliac joint pain M53.3 Low back pain M54.50
[2023-09-06 09:35] VITALS: BP 127/72; PULSE 82; O2SAT 99; BMI 22.9
== END 2023-09-06 09:54 | disposition home or self-care (01) ==
PROVIDERS: PCP Family Medicine; Visit Provider Nurse Practitioner Family
DX: M47.817 Spondylosis without myelopathy or radiculopathy, lumbosacral region (principal); M51.36 Other intervertebral disc degeneration, lumbar region; M54.51 Vertebrogenic low back pain; M53.3 Sacrococcygeal disorders, not elsewhere classified; M54.50 Low back pain, unspecified
CPT/HCPCS: 99214

== ENCOUNTER → 2023-09-06 09:24 | Outpatient (BNVA) | payer OTHER, SELFPAY | PROVIDERS: PCP Family Medicine; Visit Provider Nurse Practitioner Family ==

== ENCOUNTER 2024-04-06 08:59 | Day surgery (SDC) | payer OTHER, SELFPAY ==
--- NOTE | 2024-04-05 12:52 | P.CONAN_ITS ---
Documented by User: Rosalind Ramírez NP 04/05/24 12:52 HPI - Anesthesia Eval Consult details Narrative: 53yo F for L5 and S1 Basivertebral nerve Ablation (Intracept RFA) [facility] Active Problems Active Problems: All Active Problems Low back pain (Acute) Vertebrogenic low back pain (Acute) Left lumbar radiculopathy (Acute) Sacroiliac joint pain (Acute) Lumbosacral spondylosis (Acute) DDD (degenerative disc disease), lumbar (Acute) Sacroiliitis (Acute) Past Medical History Medical History Sacroiliitis Bilateral low back pain without sciatica DDD (degenerative disc disease), lumbar Arthralgia Social History Social History Alcohol intake: current Alcohol intake frequency: does not drink Alcohol type: wine Patient Tobacco Use Status: Never used Tobacco Have you been hit, kicked, punched, or otherwise hurt by someone within the past year? If so, by whom?: No Advance Directives: No Advance Directives Information Provided: Yes Recently lost weight without trying: No Patient : No Meds Allergies Allergy/AdvReac Type Severity Reaction Status Date / Time erythromycin base Allergy Unknown Unknown Verified 09/06/23 09:36 Home Medications ?Medication ?Instructions ?Recorded ?Confirmed ?Last Taken ?Type biotin 5 mg capsule 5 mg PO DAILY 02/03/23 Unknown History cholecalciferol (vitamin D3) 75 75 mcg PO DAILY 02/03/23 Unknown History mcg (3,000 unit) tablet magnesium 200 mg tablet 200 mg PO DAILY 02/03/23 Unknown History mecobalamin (vitamin B12) 1,000 1,000 mcg PO DAILY 02/03/23 Unknown History mcg chewable tablet Assessment and Plan Assessment Anesthesia Assessment: Chart Reviewed Documented by User: Brynn Haji MD 04/06/24 10:53 [facility] Past Medical History Medical History Sacroiliitis Bilateral low back pain without sciatica DDD (degenerative disc disease), lumbar Arthralgia Family History Family history of problems with anesthesia: No Surgical History History of Problems with Anesthesia: No Social History Social History Alcohol intake: current Alcohol intake frequency: does not drink Alcohol type: wine Patient Tobacco Use Status: Never used Tobacco Have you been hit, kicked, punched, or otherwise hurt by someone within the past year? If so, by whom?: No Advance Directives: No Advance Directives Information Provided: Yes Recently lost weight without trying: No Patient : No Meds Allergies Allergy/AdvReac Type Severity Reaction Status Date / Time erythromycin base Allergy Unknown Unknown Verified 09/06/23 09:36 Home Medications ?Medication ?Instructions ?Recorded ?Confirmed ?Last Taken ?Type biotin 5 mg capsule 5 mg PO DAILY 02/03/23 Unknown History cholecalciferol (vitamin D3) 75 75 mcg PO DAILY 02/03/23 Unknown History mcg (3,000 unit) tablet magnesium 200 mg tablet 200 mg PO DAILY 02/03/23 Unknown History mecobalamin (vitamin B12) 1,000 1,000 mcg PO DAILY 02/03/23 Unknown History mcg chewable tablet Exam Airway Mallampati Class: II TM Dist: >3cm Neck ROM: Full Heart: rrr Lungs: cta Assessment and Plan Assessment Anesthesia Assessment: Anesthesia Plan Discussed Final Anesthetic Review Family History of Problems with Anesthesia: No History of Problems with Anesthesia: No NPO: Yes ASA Class: I Final Preanesthetic Review: No Changes in Pt Med Stat, Meds/Allgs Chart Reviewed and Consent Obtained/Reviewed Patient Risk: Low Procedure Risk: Low Anesthetic Plan Anesthetic Plan: GA Disposition: Standard PACU
[2024-04-06] VITALS (8 sets, daily range): BP systolic 98–124; BP diastolic 56–76; PULSE 60–74; RESP 16–20; TEMP 36.1–36.9; O2SAT 92–99; BMI 23.0; BMI 22.9
[2024-04-06] MEDS: dexAMETHasone sod phosphate 4 MG/ML VIAL IVPUSH (09:30)
[2024-04-06] MEDS: Lactated Ringers 1,000 ML 100 ML IVCONT (09:31)
--- NOTE | 2024-04-06 10:52 | MHC.SHP ---
Pre-Procedural Eval Section A - 24 Hr Update-Section A only Date of Service: 04/06/24 The patient is an INPATIENT: No Changes since office visit: Yes Patient answered all questions The patient has been examined within 24 hours of the surgical procedure. The History & Physical has been completed within 30 days and I have reviewed it.: No Section B - Complete if H&P > 30 days Chief Complaint: Vertebrogenic low back pain Details of Present Illness: As above Relevant Family History (Specify if Yes): No Relevant Social History: None Present Medications: see Short Stay Collaborative assessment Medical History: No relevant PMH History of Previous Operations: Relevant previous surgery/procedure and date(s) (Interlaminar MICHAEL L5-S1) Allergies: Allergies Allergy/AdvReac Type Severity Reaction Status Date / Time erythromycin base Allergy Unknown Unknown Verified 09/06/23 09:36 Review of Systems Sugical H&P ROS: Negative: Constitution, Cardiovascular, Respiratory, Neurological, Psychiatric, Hem-Onc, Allergic/Immunologic, Gastrointestinal, Genitourinary, Integumentary, Endocrine and Eyes/Ears/Nose/Throat and Yes, Specify: Musculoskeletal (Disc degeneration, vertebrogenic pain syndrome) Exam Surgical H&P Exam: Normal: HEENT, Normal: Heart, Normal: Lungs, Normal: Extremities, Normal: Abdomen, Normal: Skin and Normal: Neurological Plan Diagnosis/Plan: Unchanged I have reviewed the history and physical and performed a pertinent physical examination on my patient. No changes have occurred unless specified. Time Spent With Patient Time: Total time managing care of this patient today ____ minutes.
--- NOTE | 2024-04-06 13:33 | PM.OP ---
Brief Operative Note Date of Service: 04/06/24 Pre-op diagnosis: Vertebra genic pain syndrome Post-op diagnosis: same Procedure: Basivertebral nerves radiofrequency ablation L5 and S1 Implants: None Surgeon: Jai Chahal MD Anesthesia: GETA Was an Certified Emergency Vehicle Technician used for this Procedure?: No Estimated blood loss (mL): 18 Pathology: none sent Condition: stable Disposition: PACU
--- NOTE | 2024-04-06 13:38 | P.OP_ITS ---
Operative Note Operative Note Date of Service: 04/06/24 Narrative: Basivertebral nerve (BVN) ablation? Intracept Procedure S1, L5 Procedure Time Out: There is very pleasant 53 years old female who came today to the operating room to receive basivertebral nerve radiofrequency ablation L5 and S1. The informed consent was obtained risks and benefits were explained as bleeding , infection, peripheral nerve damage, spinal cord damage, headache, elise lure to eliminate the pain..? The benefits are pain relief, the alternatives are physical therapy, medications, injections. She received cefazolin 2 g intravenously 30 minutes before onset of the procedure as well as dexamethasone 10 mg intravenously push. The patient came to the operating room and positioned supine on the stretcher. ASA monitors were applied and patient was induced with general endotracheal anesthesia. The patient was transferred on the operating table prone, all pressure points were protected. The entire back was sterilely prepped with ChloraPrep twice and draped with sterile self adhesive utility towels and covered with full body drape. Sterilely draped C-arm was brought over the operating field. Time-out was performed delineating name and Nevro the of the patient allergies, need for DVT prophylaxis, probiotics prophylaxis, risk of fire. The C-arm was rotated to a [place] view to square off the superior endplate at S1. The C-arm was then rotated to the right 20 degrees for an approach to the right S1 pedicle. The skin entry point was identified and infiltrated with mixture of 2% lidocaine with ropivacaine 0.5% 1 to 1 4 cc. A small horizontal 5 mm skin incision was made with 10 scalpel blade. The introducer cannula with bevel tip was then introduced through the skin, subcutaneous tissue and paraspinal muscle until bony contact was made. The position was checked in the AP and lateral plane. Using a mallet, the trocar was then advanced through the pedicle to the posterior aspect of the vertebral body using a combination of AP , oblique and lateral views to ensure appropriate traversing of the pedicle and no breaching of the pedicle medially. Once the trocar was in the posterior aspect of the S1 vertebral body, the trocar was removed from the cannula and the curved cannula assembly with the nitinol J-stylet was inserted. The spin wheel was rotated counterclockwise permitting excursion of the J-stylet. The curved cannula assembly was then advanced using a mallet in 1-2 mm increments. The J- stylet was observed to traverse the vertebral body in the midline in both the AP and lateral views. The J-stylet was removed and replaced with the straight stylet to reach the BVN target. Target was reached when the tip of the stylet was noted to be approximately 40 % anterior of the posterior wall of the S1 in the lateral view, 50 % inferior from the superior endplate and it crossed the midline of the S1 spinous process in the AP view. The stylet was then removed. The bipolar radiofrequency (RF) probe was ?inserted into the introducer cannula. The spin wheel was rotated clockwise to retract the PEEK sleeve to expose the proximal electrode on the radiofrequency probe. The BVN was then ablated using [facility]?s standard RFG algorithm for 15 minutes. After the C-arm was moved to visualize the target at the superolateral aspect of the L5 vertebral body. The C-arm was rotated to square off the superior endplate at L5 and rotated left to obtain an oblique view. The superolateral ?left L5 pedicle was identified, and the skin entry point identified and infiltrated with mixture of 2% lidocaine with ropivacaine 0.5% one to one using a 25- gauge 1-1/2 inch needle. A skin incision was made with 11 blade scalpel5 mm. The introducer cannula with bevel tip was then introduced through the skin, subcutaneous tissue and paraspinal muscle until bony contact was made. The position was checked in the AP and lateral plane. Using a mallet, the trocar was then advanced through the pedicle to the posterior aspect of the vertebral body using a combination of AP, oblique and lateral views to ensure appropriate traversing of the pedicle and no breaching of the pedicle medially or inferiorly. Once the trocar was in the posterior aspect of the L5 vertebral body the trocar was removed from the cannula and the curved cannula assembly with the nitinol J-stylet was inserted. The spin wheel was rotated counterclockwise permitting excursion of the J-stylet. The curved cannula assembly was then advanced using a mallet in 1-2 mm increments. The J-stylet was observed to traverse the vertebral body in the AP and lateral views. Target was reached when the tip of the stylet was 40 % anterior of the posterior wall of the L5 in the lateral view (midway between the superior and inferior endplates) and it crossed the midline of the L4 spinous process in the AP view. The stylet was then removed. The bipolar radiofrequency (RF) probe was removed from the previous vertebral body, the tip cleaned and was inserted into the introducer cannula in its ablation position. The spin wheel was rotated clockwise to retract the PEEK sleeve to expose the proximal electrode on the radiofrequency probe. The BVN was then ablated using [facility]?s standard RFG algorithm for 15 minutes.? Upon completion of the procedure instruments were removed EN mass. Pressure was applied to each site of the insertion of the introducer and held for 90 seconds. After that horizontal mattress suture was performed to close the wound with 0-0 silk suture. Bacitracin ointment was applied and sterile dressing was applied. The patient was awaken, extubated, taken outside of the operating room to recovery room where she recovered uneventfully
[2024-04-06] MEDS: Acetaminophen 1,000 MG/100 ML PIGGYBACK 400 MG IV (13:45)
== END 2024-04-06 14:55 | disposition home or self-care (01) ==
PROVIDERS: Visit Provider Anesthesiology
PROC: (CPT 64628; principal; 2024-04-06 11:00)
DX: M54.51 Vertebrogenic low back pain (principal); G89.29 Other chronic pain; M47.817 Spondylosis without myelopathy or radiculopathy, lumbosacral region; M46.1 Sacroiliitis, not elsewhere classified; M53.3 Sacrococcygeal disorders, not elsewhere classified; M51.369 Other intervertebral disc degeneration, lumbar region without mention of lumbar back pain or lower extremity pain; M25.50 Pain in unspecified joint; Z79.899 Other long term (current) drug therapy; Z88.1 Allergy status to other antibiotic agents
CPT/HCPCS: 64628; C1889; J0131; J0690; J1100; J2003; J2250; J2405; J2704; J2795; J3010; J3370

== ENCOUNTER → 2024-04-06 08:59 | Outpatient (BNV) | payer OTHER, SELFPAY | PROVIDERS: Visit Provider Anesthesiology | DX: M54.51 Vertebrogenic low back pain (principal) | CPT/HCPCS: 64628 ==

== ENCOUNTER 2024-04-16 14:49 | Outpatient (AMB) | payer OTHER, SELFPAY ==
--- NOTE | 2024-04-16 14:50 | MHC.OFFVIS ---
Vital Signs 04/16/24 14:52 Height 5 ft 7 in Weight 145 lb BMI 22.7 BP 117/66 Blood Pressure Location Lt brachial Position Sitting Respiration 14 Pulse 73 Pulse Source Pulse Oximeter Pulse Oximetry (%) 99 Oxygen Delivery Method Room Air Intake Visit Reasons: S/p L5 and S1 BVN (Intracept) 04/06/24 Allergies erythromycin base Allergy (Unknown, Verified 04/16/24 14:53) Unknown Medication List - Last Reconciled 04/16/24 by Osiris Gtz LPN biotin 5 mg PO DAILY cholecalciferol (vitamin D3) 75 mcg PO DAILY magnesium 200 mg PO DAILY mecobalamin (vitamin B12) 1,000 mcg PO DAILY tramadol 50 mg PO Q6H PRN 10 days HPI Comments Details: Patient presents today to assess response to Basivertebral nerve (BVN) ablation? Intracept Procedure L5-S1 on 04/06/[address] Chahal. Patient reports ongoing 80% pain relief since procedure with significant improvement in her daily activities and functioning, mobility, sleep and social interactions. Patient reports good postop pain control with Medrol Duane and tramadol which she was taking for few days postoperatively without any side effects and good tolerance. She continues to avoid lifting, bending or twisting. Currently she rates pain 2/10 and reports taking Tylenol today for mild symptoms. 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 Patient is interested to proceed with formal physical therapy in 2-4 weeks from today. Denies any recent cough, infection, fever, abdominal or groin pain, bladder or bowel dysfunction, saddle anesthesia, any significant changes in her medical history, medications or recent hospitalizations. The dressings were changed today in the office. Dressings were removed. The two incisional wounds were examined today. They are healing without complications. The wounds were washed with ChloraPrep and sutures were removed today. The wounds are clean, no pathological discharge, no redness, no swelling, no local temperature, no tenderness on palpation. The wounds were washed again with ChloraPrep, Steri-strips and bacitracin ointment with dry sterile dressings were applied. Past Procedures: 04/06/24: L5-S1 BVN Ablation (Intracept)-ongoing 80% pain relief 08/09/23: L5-S1 Interlaminar MICHAEL-0% pain relief 03/08/23: Bilateral Diagnostic Sacroiliac Joint Injections-0% pain relief [facility] Procedures: 06/22/2011: B/L L5-S1 Lumbar facet injection Dr. Moore 08/04/2011: L5-S[address] Moore 10/05/2021: Bilateral L3-L4-L5 MBB-0% pain relief Dr. Lambert PRIOR: Patient is a pleasant 52 years old female presents today for initial evaluation of chronic low back pain. Denies any past surgeries send trauma, injury, or falls. Patient reports chronic low back pain since 18/05 due to no specific or inciting events. Patient reports onset of pain has been gradual and over the past year has been progressively getting worse and negatively affecting her daily activities, functioning, mood, sleep, and social interactions. Back pain is axial and also radiates to both sides of the back and into both buttocks and lateral hips bilaterally which is consistent with sacroiliac joint pain. She denies any radiation to her lower extremities. Patient has completed numerous courses of physical therapy, chiropractic manipulation, muscle therapy and back injections at [facility] with minimal or no pain relief. One of her last injections were bilateral L3-L4 L5 lumbar medial branch blocks by Dr. Lambert on 10/05/2021 which provided no pain relief. Patient also try to manage her pain is meloxicam, Flexeril, diclofenac and CBD without significant relief. A course of prednisone therapy helped for 2 days only. She also underwent rheumatology evaluation with negative workup including HLA B27 which was negative. Denies any fever, chills, abdominal or groin pain, weakness, numbness, tingling, bladder or bowel dysfunction, or saddle anesthesia. Location Lower back wraps around both buttocks and into lateral hips bilaterally Duration Chronic low back pain since 2011 Characteristics of symptom or complaint Aching, tiring, spreading, radiating, piercing Aggravating or associated factors Any movements, daily activities, changing positions, prolonged sitting Relieving factors Minimal effects with NSAIDs, Flexeril, Tylenol, heat therapy Treatment PT, chiropractor, acupunture, muscle therapy. Back injections- [facility] Medical History Sacroiliitis Bilateral low back pain without sciatica DDD (degenerative disc disease), lumbar Arthralgia Social History Alcohol intake: current Alcohol intake frequency: does not drink Alcohol type: wine Patient Tobacco Use Status: Never used Tobacco Review of Systems Const All systems reviewed & are unremarkable except as noted in HPI and below Physical Exam Vital Signs: Last Vital Signs Pulse 73 04/16/24 14:52 Resp 14 04/16/24 14:52 BP 117/66 04/16/24 14:52 Pulse Ox 99 04/16/24 14:52 Oxygen Delivery Method Room Air 04/16/24 14:52 BMI result Body Mass Index 22.7 General: Appears afebrile. Alert and oriented. Mood and affect appropriate. Follows and participates in conversation appropriately. Respiratory effort is unlabored. No cough. No nasal discharge. Able to transition from sit to stand unassisted. Ambulates with bilaterally normal heel strike and toe off. Sutures removed today. Dressings were changed in the office today. Results Reviewed Results Reviewed: FL guidance in treatment room 08/09/23 IMPRESSION: 1. Fluoroscopy guidance was provided to referrer for pain management. 2. Degenerative disc changes with posterior endplate spurring L5-S1 disc level. Assessment & Plan Assessment & Plan (1) DDD (degenerative disc disease), lumbar: Code(s): M51.36 - Other intervertebral disc degeneration, lumbar region Category: Medical (2) Lumbosacral spondylosis: Code(s): M47.817 - Spondylosis without myelopathy or radiculopathy, lumbosacral region Category: Medical (3) Vertebrogenic low back pain: Comment: L5-S1 BVN ablation 04/06/24 Code(s): M54.51 - Vertebrogenic low back pain Category: Medical (4) Low back pain: Code(s): M54.50 - Low back pain, unspecified Category: Medical (5) Sacroiliac joint pain: Code(s): M53.3 - Sacrococcygeal disorders, not elsewhere classified Category: Medical Plan Patient is status post L5-S1 BVN ablation with good results but significant improvement in her daily activities and functioning, mobility, sleep, and social interactions. Sutures were removed today interesting switch change in the office today. Patient will continue to avoid heavy lifting, bending, or twisting. She is ok to shower in 48-72 hours. Script provided for gabapentin 300 mg t.i.d., patient will start with once a day at bedtime for 3-5 days and slowly advanced to b.i.d. and t.i.d. as tolerated. Recommend formal physical therapy to start in 2-4 weeks. Script provided for PT closer to patient's home and work per patient request. All questions were answered and the patient is in agreement of plan. Follow-up after PT/medication review and sooner as needed. Orders: Orders PT Evaluation and Treatment Today M47.817 - Spondylosis without myelopathy or radiculopathy, lumbosacral region, M51.36 - Other intervertebral disc degeneration, lumbar region, M54.50 - Low back pain, unspecified, M54.51 - Vertebrogenic low back pain Medications: New gabapentin 300 mg PO TID 30 days 90 caps 0RF pain M47.817 - Spondylosis without myelopathy or radiculopathy, lumbosacral region, M51.36 - Other intervertebral disc degeneration, lumbar region, M54.50 - Low back pain, unspecified, M54.51 - Vertebrogenic low back pain Coding Level of Care Code Est Pt Level 4 (48473) Complex EM visit Add On G2211 Diagnoses DDD (degenerative disc disease), lumbar M51.36 Lumbosacral spondylosis M47.817 Vertebrogenic low back pain M54.51 Low back pain M54.50 Sacroiliac joint pain M53.3
[2024-04-16 14:52] VITALS: BP 117/66; PULSE 73; RESP 14; O2SAT 99; BMI 22.7
== END 2024-04-16 15:33 | disposition home or self-care (01) ==
PROVIDERS: Visit Provider Nurse Practitioner Family
DX: M51.369 Other intervertebral disc degeneration, lumbar region without mention of lumbar back pain or lower extremity pain (principal); M47.817 Spondylosis without myelopathy or radiculopathy, lumbosacral region; M54.51 Vertebrogenic low back pain; M54.50 Low back pain, unspecified; M53.3 Sacrococcygeal disorders, not elsewhere classified
CPT/HCPCS: 99024

== ENCOUNTER 2024-08-13 08:25 | Outpatient (AMB) | payer OTHER, SELFPAY ==
--- NOTE | 2024-08-13 08:32 | A.OFFVIS_ITS ---
Vital Signs 3 08/13/24 08:33 Height 5 ft 7 in Weight 151 lb BMI 23.6 BP 96/54 L Blood Pressure Location Lt brachial Position Sitting Respiration 16 Pulse 69 Pulse Source Pulse Oximeter Pulse Oximetry (%) 99 Oxygen Delivery Method Room Air Intake Visit Reasons: FU pain increasing It Trainer Required: No Allergies erythromycin base Allergy (Unknown, Verified 08/13/24 08:34) Unknown Medication List - Last Reconciled 08/13/24 by Osiris Gtz LPN biotin 5 mg PO DAILY cholecalciferol (vitamin D3) 75 mcg PO DAILY magnesium 200 mg PO DAILY mecobalamin (vitamin B12) 1,000 mcg PO DAILY HPI Comments Details: The patient is a 53-year-old female presenting with persistent low back pain after undergoing L5-S1 BVN ablation (Intracept) procedure six months ago. She has suffered from lumbar degenerative disc disease and lumbar spondylosis, with previous neurosurgical evaluation deeming her a candidate for L5-S1 lumbar fusion. Despite this, she chose BVN ablation as prior conservative treatments were unsuccessful. Current symptoms include axial low back pain with radiation to the buttocks, exacerbated by movement and routine activities. Pain management strategies, including physical therapy, medications, and injections, have proved ineffective. Pain at rest 3/10 and increases above 6-7/10 with daily activities. Denies any recent cough, cold, infection, fever, abdominal or groin pain, weakness, foot drop, bladder or bowel dysfunction, saddle anesthesia or any other significant changes in medical history since last office visit. - Onset: Reoccurring post L5-S1 BVN (Intracept) procedure. - Quality and Character: Axial low back pain, radiating to bilateral buttocks. - Primary Location: Lower back. - Radiation: To bilateral buttocks. - Exacerbating Factors: All back movements, specifically bending backward, and moderate physical activity. - Relieving Factors: Initial relief from steroid injection and oral steroid therapy; NSAIDs; Tylenol - Interference: Significant daily activity limitation, disrupted sleep. - Affect: Interferes with daily activities and sleep; persistent discomfort impacts quality of life. - Analgesia: Current medications include Tylenol 650 mg and Ibuprofen; ineffective. - Adverse Effects: No reported medication side effects. - Activities of Daily Living: Limited by pain with bending movements, general household tasks, desk computer work and prolonged standing. - Aberrant Drug Related Behaviors: None indicated. PRIOR: Patient presents today to assess response to Basivertebral nerve (BVN) ablation? Intracept Procedure L5-S1 on 04/06/[address] Chahal. Patient reports ongoing 80% pain relief since procedure with significant improvement in her daily activities and functioning, mobility, sleep and social interactions. Patient reports good postop pain control with Medrol Duane and tramadol which she was taking for few days postoperatively without any side effects and good tolerance. She continues to avoid lifting, bending or twisting. Currently she rates pain 2/10 and reports taking Tylenol today for mild symptoms. 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 Patient is interested to proceed with formal physical therapy in 2-4 weeks from today. Denies any recent cough, infection, fever, abdominal or groin pain, bladder or bowel dysfunction, saddle anesthesia, any significant changes in her medical history, medications or recent hospitalizations. The dressings were changed today in the office. Dressings were removed. The two incisional wounds were examined today. They are healing without complications. The wounds were washed with ChloraPrep and sutures were removed today. The wounds are clean, no pathological discharge, no redness, no swelling, no local temperature, no tenderness on palpation. The wounds were washed again with ChloraPrep, Steri-strips and bacitracin ointment with dry sterile dressings were applied. Past Procedures: 04/06/24: L5-S1 BVN Ablation (Intracept)-ongoing 80% pain relief 08/09/23: L5-S1 Interlaminar MICHAEL-0% pain relief 03/08/23: Bilateral Diagnostic Sacroiliac Joint Injections-0% pain relief [facility] Procedures: 06/22/2011: B/L L5-S1 Lumbar facet injection Dr. Moore 08/04/2011: L5-S[address] Moore 10/05/2021: Bilateral L3-L4-L5 MBB-0% pain relief Dr. Lambert PRIOR: Patient is a pleasant 52 years old female presents today for initial evaluation of chronic low back pain. Denies any past surgeries send trauma, injury, or falls. Patient reports chronic low back pain since 18/05 due to no specific or inciting events. Patient reports onset of pain has been gradual and over the past year has been progressively getting worse and negatively affecting her daily activities, functioning, mood, sleep, and social interactions. Back pain is axial and also radiates to both sides of the back and into both buttocks and lateral hips bilaterally which is consistent with sacroiliac joint pain. She denies any radiation to her lower extremities. Patient has completed numerous courses of physical therapy, chiropractic manipulation, muscle therapy and back injections at [facility] with minimal or no pain relief. One of her last injections were bilateral L3-L4 L5 lumbar medial branch blocks by Dr. Lambert on 10/05/2021 which provided no pain relief. Patient also try to manage her pain is meloxicam, Flexeril, diclofenac and CBD without significant relief. A course of prednisone therapy helped for 2 days only. She also underwent rheumatology evaluation with negative workup including HLA B27 which was negative. Denies any fever, chills, abdominal or groin pain, weakness, numbness, tingling, bladder or bowel dysfunction, or saddle anesthesia. Location Lower back wraps around both buttocks and into lateral hips bilaterally Duration Chronic low back pain since 2011 Characteristics of symptom or complaint Aching, tiring, spreading, radiating, piercing Aggravating or associated factors Any movements, daily activities, changing positions, prolonged sitting Relieving factors Minimal effects with NSAIDs, Flexeril, Tylenol, heat therapy Treatment PT, chiropractor, acupunture, muscle therapy. Back injections- [facility] Medical History Sacroiliitis Bilateral low back pain without sciatica DDD (degenerative disc disease), lumbar Arthralgia Social History Alcohol intake: current Alcohol intake frequency: does not drink Alcohol type: wine Patient Tobacco Use Status: Never used Tobacco Review of Systems Const Details: - Musculoskeletal: Reports persistent low back pain. - Neurological: Denies numbness, tingling, weakness, foot drop, or buttock numbness. - General: Difficulty sleeping due to pain. All systems reviewed & are unremarkable except as noted in HPI and below Physical Exam General: Appears afebrile. Alert and oriented. Mood and affect appropriate. Follows and participates in conversation appropriately. Respiratory effort is unlabored. No cough. Able to transition from sit to stand unassisted. Ambulates with bilaterally normal heel strike and toe off. General: Yes no CVA tenderness Back/Spine/Pelvis Other: Limited lumbar ROM, flexion is intact and reproduces mild pain. Lumbar extension and axial rotations reproduce moderate pain. Well healed scars lower back h/o recent L5-S1 BVN ablation. Demonstrates 5/5 strength of quadriceps bilaterally as well as flexion/dorsiflexion of bilateral feet against resistance. 2+ pedal pulses bilaterally. +2 patellar and achilles reflexes bilaterally. Painful facet loading test positive bilaterally. Kenji?s, Pelvic compression and Stinchfield tests are reproduce lateral hip discomfort but no significant lower back or buttock pain. No groin pain with I/E hip rotations. Valsalva maneuver is negative. Back: no CVA tenderness Cervical Spine: cervical ROM normal, cervical muscular tenderness and No Cervical spine tenderness Thoracic/Lumbar Spine: thoracic and lumbar spine normal to inspection, No Thoracic/lumbar spine scar(s), Lasegue's sign negative, straight leg raise negative bilaterally, pain with thoraco-lumbar ROM, paraspinal muscle tenderness, No thoracic spinal tenderness and lumbar spinal tenderness (L3-S1) Pelvis: buttock tenderness bilaterally Sacroiliac joints: bilaterally tender to palpation (minimal) Extrem General: Yes capillary refill normal, Yes no clubbing, cyanosis or edema and Yes no calf tenderness Results Reviewed Results Reviewed: FL guidance in treatment room 08/09/23 IMPRESSION: 1. Fluoroscopy guidance was provided to referrer for pain management. 2. Degenerative disc changes with posterior endplate spurring L5-S1 disc level. XR SACRO ILIAC JOINTS >3 views 02/07/23 RAYUS INDICATION: Other intervertebral disc degeneration. Sacroiliitis, not elsewhere classified. Spondylosis without myelopathy or radiculopath, lumbosacral region. TECHNIQUE: Three views of the SI joints. COMPARISON: XR lumbar spine 02/07/2023. FINDINGS: The visualized SI joint space is bilaterally symmetrical. There is no evidence of lytic or sclerotic process. Bones demonstrate normal mineralization. IUD IMPRESSION: Unremarkable radiographic appearance of the sacroiliac joints. XR SPINE LUMBAR MIN 4 VIEWS 02/07/23 RAYUS INDICATION: Other intervertebral disc degeneration. Sacroiliitis, not elsewhere classified. Spondylosis of the lumbosacral region. TECHNIQUE: Four views of the lumbar spine with flexion and extension views (seven images obtained). COMPARISON: None Available. FINDINGS: The alignment is anatomic. Vertebral body height is normal without compression deformity. There is no evidence of spondylolysis. Degenerative disc disease with moderate to advanced disc space narrowing at L5-S1. Flexion and extension are normal. IUD noted. IMPRESSION: No radiographic evidence of acute fracture or traumatic subluxation. Degenerative disc disease with moderate to advanced disc space narrowing at L5- S1. Assessment & Plan Assessment & Plan (1) DDD (degenerative disc disease), lumbar: Code(s): M51.36 - Other intervertebral disc degeneration, lumbar region Category: Medical (2) Lumbosacral spondylosis: Code(s): M47.817 - Spondylosis without myelopathy or radiculopathy, lumbosacral region Category: Medical (3) Sacroiliac joint pain: Code(s): M53.3 - Sacrococcygeal disorders, not elsewhere classified Category: Medical (4) Vertebrogenic low back pain: Comment: L5-S1 BVN ablation 04/06/24 Code(s): M54.51 - Vertebrogenic low back pain Category: Medical (5) Low back pain: Code(s): M54.50 - Low back pain, unspecified Category: Medical Plan The plan is to perform diagnostic lumbar medial branch blocks to evaluate if arthritis is the primary pain generator post-procedure. This will guide further treatment options, including potential Sprint PNS trial or RFA procedures. Considering prior ineffective conservative treatment, further imaging is deferred unless new symptoms necessitate reevaluation. NSAIDs may be cautiously introduced short-term for persistent inflammation. Continuous follow-up will be required to monitor and address any changes in the patient's condition. Schedule Bilateral Diagnostic L3-L4 DR L5 MBB with local and fluoroscopy. Expectations, risks and benefits were reviewed. Patient is aware he will be contacted to schedule this procedure. Script provided for Medrol Duane for acute on chronic low back pain. Patient will complete 1-2 days of treatment to address acute symptoms while she is awaiting insurance approval. Side effects and precautions were discussed with patient. All questions were answered and the patient is in agreement of plan. Follow-up after injections and sooner as needed. Patient was informed and verbally consented to the use of an ambient scribe for clinic note documentation during this visit. Medications: New 2 methylprednisolone (Medrol (Duane)) PO PER PKG DIR 21 ea 0RF pain M51.36 - Other intervertebral disc degeneration, lumbar region Patient Instructions: During the consultation, I discussed with the patient the complexity of her low back pain, potentially attributed to discogenic and spondylotic elements post- BVN ablation. We deliberated the role of diagnostic lumbar medial branch blocks as an evaluative step to pinpoint the source of pain, considering previous interventions yielded little relief. Risks of prolonged steroid use were explained due to concerns of bone health at her age. I reviewed the importance of controlled NSAID use and outlined the process of monitoring any exacerbation of symptoms closely. Follow-ups were scheduled post-diagnosis to assess and adjust pain management approaches appropriately. - Plan to proceed with scheduled diagnostic lumbar medial branch blocks. - Continue current pain management regimen as discussed. - Monitor for any new or worsening symptoms and report promptly. - Practice caution with physical activities that exacerbate pain. - Script provided for Medrol Duane for 1-2 days for moderate-severe acute on chronic LBP flare up while awaiting for PA approval for lumbar MBBs. Be aware of medication side effects and adhere to prescribed usage. - Schedule follow-up appointment as planned for post-procedure evaluation. Coding Level of Care Code Est Pt Level 4 (48972) Complex EM visit Add On G2211 Diagnoses DDD (degenerative disc disease), lumbar M51.36 Lumbosacral spondylosis M47.817 Sacroiliac joint pain M53.3 Vertebrogenic low back pain M54.51 Low back pain M54.50
[2024-08-13 08:33] VITALS: BP 96/54; PULSE 69; RESP 16; O2SAT 99; BMI 23.6
== END 2024-08-13 08:54 | disposition home or self-care (01) ==
LOC: HO.PMC 08:25
PROVIDERS: Visit Provider Nurse Practitioner Family
DX: M51.369 Other intervertebral disc degeneration, lumbar region without mention of lumbar back pain or lower extremity pain (principal); M47.817 Spondylosis without myelopathy or radiculopathy, lumbosacral region; M53.3 Sacrococcygeal disorders, not elsewhere classified; M54.51 Vertebrogenic low back pain; M54.50 Low back pain, unspecified
CPT/HCPCS: 99214

== ENCOUNTER → 2024-08-13 08:25 | Outpatient (BNVA) | payer OTHER, SELFPAY | PROVIDERS: Visit Provider Nurse Practitioner Family ==

== ENCOUNTER 2024-10-16 06:03 | Outpatient (REF) | payer OTHER, SELFPAY ==
--- NOTE | ~2024-10-16 | FL_ITS ---
EXAMINATION: FL GUIDANCE ONLY HISTORY: M47.817 - Spondylosis without myelopathy or radiculopathy, lumbosacral COMPARISON: None available. TECHNIQUE: Fluoroscopy time: 0.5 minutes. Cumulative Dose: 8.75 mGy. DAP: 0.143 mGym2 Images: 13. FINDINGS: Fluoroscopic spot films of the lumbar spine in the AP projection demonstrate needles and contrast material in the regions of the bilateral L3-4, L4-5, and L5-S1 facet joints. FL/FL guidance in treatment room IMPRESSION: Fluoroscopy during procedure. Please see procedure report for additional information. Electronically signed by: Travon Mclean MD 10/16/2024 10:37 AM EDT
== END 2024-10-16 06:04 | disposition home or self-care (01) ==
LOC: CF 06:03
PROVIDERS: Visit Provider Anesthesiology
DX: M47.817 Spondylosis without myelopathy or radiculopathy, lumbosacral region (principal)
CPT/HCPCS: 64493; 64494; J2003; J2795; Q9967

== ENCOUNTER 2024-10-16 07:32 | Outpatient (AMB) | payer OTHER, SELFPAY ==
[2024-10-16 07:43] VITALS: BP 98/62; PULSE 65; RESP 16; O2SAT 100
--- NOTE | 2024-10-16 07:43 | MHC.OFFVIS ---
Vital Signs 10/16/24 07:43 10/16/24 08:23 BP 98/62 112/82 Blood Pressure Location Lt brachial Lt brachial Position Sitting Sitting Respiration 16 16 Pulse 65 63 Pulse Source Pulse Oximeter Pulse Oximeter Pulse Oximetry (%) 100 98 Oxygen Delivery Method Room Air Room Air Intake Visit Reasons: BILATERAL DIAGNOSTIC L3, L4, DRL5 MBB/ATIVAN REQ Receivable Clerk Required: No Allergies erythromycin base Allergy (Unknown, Verified 10/16/24 07:44) Unknown Medication List - Last Reconciled 10/16/24 by Osiris Gtz LPN biotin 5 mg PO DAILY cholecalciferol (vitamin D3) 75 mcg PO DAILY magnesium 200 mg PO DAILY mecobalamin (vitamin B12) 1,000 mcg PO DAILY [facility] Medical History Sacroiliitis Bilateral low back pain without sciatica DDD (degenerative disc disease), lumbar Arthralgia Social History Alcohol intake: current Alcohol intake frequency: does not drink Alcohol type: wine Patient Tobacco Use Status: Never used Tobacco Physical Exam Vital Signs: Last Vital Signs Pulse 63 10/16/24 08:23 Resp 16 10/16/24 08:23 BP 112/82 10/16/24 08:23 Pulse Ox 98 10/16/24 08:23 Oxygen Delivery Method Room Air 10/16/24 08:23 Assessment & Plan Assessment & Plan (1) Lumbosacral spondylosis: Code(s): M47.817 - Spondylosis without myelopathy or radiculopathy, lumbosacral region Category: Medical Plan Diagnostic medial branch block L3,L4 dorsal ramus L5 bilateral.? ? ?Informed consent was explained to the patient. All questions were explained and? answered.? The patient was taken inside the operating room where she was positioned prone on the operating table. Time-out was performed delineating correct site, side, the nature of the procedure, patient's allergy, . All operating room staff was participating in OR time-out procedure. ? ? The lower back was prepped with ChloraPrep and draped with sterile utility towels.? C-arm was brought over the operating field and sq picture of L4-, L5 vertebra and S1 AREA were delineated on the screen.? Point of interest were delineated as confluence of superior articular process of L4 and L5 vertebra bilaterally with corresponding transverse processes as well as confluence of the sacral alae bilaterally with superior articular process of S1.? The projection of the point of interest to the skin were injected with the small amount of local anesthetic lidocaine 2% mixed with ropivacaine 0.5% 1-1 approximately 1 cc.? After that 22 gauge 3.5 inch spinal needle was driven sequentially to the points of interest in tunnel vision fashion. After needles gently contacted the bone at the point of interests the needle was injected with small amount of the contrast.? The injection of the contrast did not demonstrate any intravascular or intrathecal spread of the contrast.? After that injection of the? ropivacaine 0.5%-1cc was performed at each needle location.?After that the needles were removed and Bandaids were applied. ? Upon completion of the injections? needle was? removed and sterile Band-Aids were applied.? The patient tolerated procedure very well. Orders: Orders FL guidance in treatment room Today M47.817 - Spondylosis without myelopathy or radiculopathy, lumbosacral region Coding Level of Care Code Procedure Only Diagnoses Lumbosacral spondylosis M47.817
[2024-10-16 08:23] VITALS: BP 112/82; PULSE 63; RESP 16; O2SAT 98
== END 2024-10-16 08:22 | disposition home or self-care (01) ==
LOC: HO.PMCPRC 07:32
PROVIDERS: Visit Provider Anesthesiology
DX: M47.817 Spondylosis without myelopathy or radiculopathy, lumbosacral region (principal)
CPT/HCPCS: 64493; 64494

== ENCOUNTER 2024-10-25 12:58 | Outpatient (AMB) | payer OTHER, SELFPAY ==
--- NOTE | 2024-10-25 13:05 | MHC.OFFVIS ---
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 Chahal. She reports longstanding low back pain with a burning sensation, primarily localized to the left side and extending to the buttocks, significantly worsening with movements. Diagnostic and therapeutic interventions, including medial branch blocks, SIJ, epidural steroid injections, and BVN ablation, have provided minimal to temporary relief. The patient's pain is attributed to lumbar disc degeneration, spondylosis, and sacroiliac joint pain. Despite previous treatments, she continues to experience significant discomfort and is exploring advanced pain management options, including the potential use of a spinal cord stimulator and opioid program. Denies any recent cough, cold, infection, fever, abdominal or groin pain, weakness, foot drop, bladder or bowel dysfunction, saddle anesthesia or any other significant changes in medical history since last office visit. Past Procedures: 10/16/24: Bilateral Diagnostic L3-L4 DR L5 MBB-0% pain relief 04/06/24: L5-S1 BVN Ablation (Intracept)-ongoing 80% pain relief 08/09/23: L5-S1 Interlaminar MICHAEL-0% pain relief 03/08/23: Bilateral Diagnostic Sacroiliac Joint Injections-0% pain relief [facility] Procedures: 06/22/2011: B/L L5-S1 Lumbar facet injection Dr. Moore 08/04/2011: L5-S1 Interlaminar MIC[address] Dr[address] Moore 10/05/2021: Bilateral L3-L4-L5 MBB-0% pain relief Dr. Lambert PRIOR: Patient is a pleasant 52 years old female presents today for initial evaluation of chronic low back pain. Denies any past surgeries send trauma, injury, or falls. Patient reports chronic low back pain since 18/05 due to no specific or inciting events. Patient reports onset of pain has been gradual and over the past year has been progressively getting worse and negatively affecting her daily activities, functioning, mood, sleep, and social interactions. Back pain is axial and also radiates to both sides of the back and into both buttocks and lateral hips bilaterally which is consistent with sacroiliac joint pain. She denies any radiation to her lower extremities. Patient has completed numerous courses of physical therapy, chiropractic manipulation, muscle therapy and back injections at [facility] with minimal or no pain relief. One of her last injections were bilateral L3-L4 L5 lumbar medial branch blocks by Dr. Lambert on 10/05/2021 which provided no pain relief. Patient also try to manage her pain is meloxicam, Flexeril, diclofenac and CBD without significant relief. A course of prednisone therapy helped for 2 days only. She also underwent rheumatology evaluation with negative workup including HLA B27 which was negative. Denies any fever, chills, abdominal or groin pain, weakness, numbness, tingling, bladder or bowel dysfunction, or saddle anesthesia. Location Lower back wraps around both buttocks and into lateral hips bilaterally Duration Chronic low back pain since 2011 Characteristics of symptom or complaint Aching, tiring, spreading, radiating, piercing Aggravating or associated factors Any movements, daily activities, changing positions, prolonged sitting Relieving factors Minimal effects with NSAIDs, Flexeril, Tylenol, heat therapy Treatment PT, chiropractor, acupunture, muscle therapy. Back injections- [facility] Medical History (Updated 10/25/24 @ 21:23 by RENETTA Brown) Sacroiliac joint pain Lumbosacral spondylosis Chronic pain syndrome Sacroiliitis Bilateral low back pain without sciatica DDD (degenerative disc disease), lumbar Arthralgia Social History Alcohol intake: current Alcohol intake frequency: does not drink Alcohol type: wine Patient Tobacco Use Status: Never used Tobacco Review of Systems Const All systems reviewed & are unremarkable except as noted in HPI and below Physical Exam Vital Signs: Last Vital Signs Pulse 76 10/25/24 13:08 BP 129/64 10/25/24 13:08 Pulse Ox 99 10/25/24 13:08 Oxygen Delivery Method Room Air 10/25/24 13:08 BMI result Body Mass Index 23.6 General: Appears afebrile. Moderate distress due to pain. Alert and oriented. Mood and affect appropriate. Follows and participates in conversation appropriately. Respiratory effort is unlabored. No cough. Able to transition from sit to stand unassisted. Ambulates with bilaterally normal heel strike and toe off. General: Yes no CVA tenderness Back/Spine/Pelvis Other: Limited lumbar ROM, flexion, bending, extension and axial rotations reproduce moderate pain. Demonstrates 5/5 strength of quadriceps bilaterally as well as flexion/dorsiflexion of bilateral feet against resistance. 2+ pedal pulses bilaterally. +2 patellar and achilles reflexes bilaterally. Painful facet loading test positive bilaterally. Kenji?s, and Stinchfield tests are positive bilaterally, left>right. No groin pain with I/E hip rotations. Valsalva maneuver is negative. Back: no CVA tenderness Cervical Spine: cervical ROM normal, cervical muscular tenderness and No Cervical spine tenderness Thoracic/Lumbar Spine: thoracic and lumbar spine normal to inspection, No Thoracic/lumbar spine scar(s), Lasegue's sign negative, straight leg raise negative bilaterally, pain with thoraco-lumbar ROM, paraspinal muscle tenderness, thoraco-lumbar ROM limited, No thoracic spinal tenderness and lumbar spinal tenderness (L3-S1) Pelvis: buttock tenderness on the left Sacroiliac joints: bilaterally tender to palpation (left>right) Extrem General: Yes capillary refill normal, Yes no clubbing, cyanosis or edema and Yes no calf tenderness Psych Appearance: grossly normal and well kempt Mental Status: mental status grossly normal Speech and movement: Normal speech and movement present and Clear speech present Affect: normal affect Attitude: cooperative Thought process: Normal thought process present Thought content: Normal thought content present, suicidality (none), no hallucinations and No Depressive thoughts present Insight: Good insight present (Psych) Judgement: Good judgement present (Psych) Results Reviewed Results Reviewed: FL guidance in treatment room 08/09/23 IMPRESSION: 1. Fluoroscopy guidance was provided to referrer for pain management. 2. Degenerative disc changes with posterior endplate spurring L5-S1 disc level. XR SACRO ILIAC JOINTS >3 views 02/07/23 RAYUS INDICATION: Other intervertebral disc degeneration. Sacroiliitis, not elsewhere classified. Spondylosis without myelopathy or radiculopath, lumbosacral region. TECHNIQUE: Three views of the SI joints. COMPARISON: XR lumbar spine 02/07/2023. FINDINGS: The visualized SI joint space is bilaterally symmetrical. There is no evidence of lytic or sclerotic process. Bones demonstrate normal mineralization. IUD IMPRESSION: Unremarkable radiographic appearance of the sacroiliac joints. XR SPINE LUMBAR MIN 4 VIEWS 02/07/23 RAYUS INDICATION: Other intervertebral disc degeneration. Sacroiliitis, not elsewhere classified. Spondylosis of the lumbosacral region. TECHNIQUE: Four views of the lumbar spine with flexion and extension views (seven images obtained). COMPARISON: None Available. FINDINGS: The alignment is anatomic. Vertebral body height is normal without compression deformity. There is no evidence of spondylolysis. Degenerative disc disease with moderate to advanced disc space narrowing at L5-S1. Flexion and extension are normal. IUD noted. IMPRESSION: No radiographic evidence of acute fracture or traumatic subluxation. Degenerative disc disease with moderate to advanced disc space narrowing at L5-S1. Assessment & Plan Assessment & Plan (1) DDD (degenerative disc disease), lumbar: Code(s): M51.36 - Other intervertebral disc degeneration, lumbar region Category: Medical (2) Lumbosacral spondylosis: Code(s): M47.817 - Spondylosis without myelopathy or radiculopathy, lumbosacral region Category: Medical (3) Sacroiliac joint pain: Code(s): M53.3 - Sacrococcygeal disorders, not elsewhere classified Category: Medical (4) Vertebrogenic low back pain: Comment: L5-S1 BVN ablation 04/06/24 Code(s): M54.51 - Vertebrogenic low back pain Category: Medical (5) Low back pain: Code(s): M54.50 - Low back pain, unspecified Category: Medical (6) Chronic pain syndrome: Code(s): G89.4 - Chronic pain syndrome Category: Medical Plan On evaluation, it was determined that there was a continued need to continue palliative chronic opioid prescribing. Risks and benefits were discussed with the patient. For medication management, Vicodin is considered, with a discussion on the use of Belbuca or Butrans patch for sustained pain control. An opioid contract will be established to monitor and manage any opioid therapy. A urine drug screen is planned for baseline assessment and compliance. We also discussed a trial of a spinal cord stimulator for managing the patient's chronic lumbar radiculopathy and associated pain conditions. If successful, consideration for permanent implantation will follow. A psychological evaluation is required prior to the trial. Information pamphlets were provided to patient today for review. Lifestyle modifications and activity adjustments will continue to improve functioning and pain reduction. All questions were answered and the patient is in agreement of plan. Follow-up after injections and sooner as needed. Patient was informed and verbally consented to the use of an ambient scribe for clinic note documentation during this visit. Medications: New hydrocodone-acetaminophen 5-325 mg Partial Fill upon patient request. 1 tab PO BID 15 days PRN 30 tabs 0RF pain M47.817 - Spondylosis without myelopathy or radiculopathy, lumbosacral region, M51.36 - Other intervertebral disc degeneration, lumbar region, M53.3 - Sacrococcygeal disorders, not elsewhere classified, M54.50 - Low back pain, unspecified naloxone 4 mg/actuation (Narcan) spray 1 dose into ONE nostril; alternate nostrils w each dose until help arrives 4 mg intranasal Q2M PRN 2 ea 0RF opioid overdose Patient Instructions: During the consultation, we explored the potential benefits and risks associated with a spinal cord stimulator for chronic pain management. I outlined the procedure, including the trial phase and potential permanent implantation, emphasizing the role of neuromodulation in altering pain perception. The patient was receptive to the possibility of this intervention, pending psychological evaluation and trial success. We also discussed alternative analgesic options, considering the patient's previous adverse experiences with tramadol and oxycodone. I explained the use of Vicodin and the potential transition to buprenorphine-based medications like Belbuca or Butrans, highlighting the importance of an opioid contract for continuous medical management. The patient was advised on Narcan use for emergency situations. The patient expressed concerns about opioid therapy, and I reassured her about the monitoring measures in place. Follow-up includes a urine drug screen and a detailed review of results to finalize the pain management strategy. We discussed the importance of lifestyle modifications to support pain relief and enhance functionality. - Consider trial of a spinal cord stimulator to assess pain relief. Review informational pamphlet. - Psychological evaluation is required before proceeding with the stimulator trial. - Undergo a urine drug screen for baseline assessment. - Start with a short prescription of Vicodin as a trial medication. - Consider alternative medications like Belbuca or Butrans if Vicodin is not suitable. - Follow opioid contract instructions carefully to ensure safe use. - Use Narcan as instructed in case of emergency. - Make lifestyle adjustments to help manage pain and improve daily activities. - Schedule follow-up appointment to review results and finalize pain management plan. Coding Level of Care Code Est Pt Level 4 (10685) Complex EM visit Add On G2211 Diagnoses DDD (degenerative disc disease), lumbar M51.36 Lumbosacral spondylosis M47.817 Sacroiliac joint pain M53.3 Vertebrogenic low back pain M54.51 Low back pain M54.50 Chronic pain syndrome G89.4
[2024-10-25 13:08] VITALS: BP 129/64; PULSE 76; O2SAT 99; BMI 23.6
== END 2024-10-25 14:02 | disposition home or self-care (01) ==
LOC: HO.PMC 12:58
PROVIDERS: Visit Provider Nurse Practitioner Family
DX: M51.369 Other intervertebral disc degeneration, lumbar region without mention of lumbar back pain or lower extremity pain (principal); M47.817 Spondylosis without myelopathy or radiculopathy, lumbosacral region; M53.3 Sacrococcygeal disorders, not elsewhere classified; M54.51 Vertebrogenic low back pain; M54.50 Low back pain, unspecified; G89.4 Chronic pain syndrome
CPT/HCPCS: 99214

== ENCOUNTER → 2024-10-25 12:58 | Outpatient (BNVA) | payer OTHER, SELFPAY | PROVIDERS: Visit Provider Nurse Practitioner Family ==